=== PATIENT | female | born 1990 | race Caucasian/White ===

== ENCOUNTER 2016-10-28 08:35 | Observation (INO) | payer BC, OTHER ==
[~2016-10-28] VITALS: Ht 170.2 cm; Wt 79.3 kg
[~2016-10-28 08:35] MED LIST: BCPILLS PO
[2016-10-28] MEDS ORDERED: GI COCKTAIL PO STA (09:37)
[2016-10-28] MEDS ORDERED: LIDOCAINE HCL 2% VISC SOLN 20 ML UDC ONE (09:49)
[2016-10-28] MEDS ORDERED: ALUMINUM/MAGNESIUM SUSP 30 ML UDC ONE (09:49)
[2016-10-28 09:59] LABS: BASO % 0.2 %; BASO ABS # 0.01 K/uL (0-0.2); COMPLETE YES; EOS % 0.5 %; HEMATOCRIT 39.6 % (37-47); IG% 0.3 %; LYMPH ABS # 0.99 K/uL (1.2-3.4); MEAN CELL VOLUME 92.1 fL (80-100); MEAN CORPUSCULAR HEMOGLOBIN 32.3 pg (25-34); MEAN CORPUSCULAR HGB CONC 35.1 g/dl (32-36); MEAN PLATELET VOLUME 9.4 fL (7.4-10.4); MONO % 7.7 %; NEUT % 76.3 %; PLATELET COUNT 156 K/uL (130-400); WHITE BLOOD COUNT 6.62 K/uL (4.8-10.8)
[2016-10-28 10:15] LABS: BUN/CREATININE RATIO 11.4 (10-20); CALCIUM 8.6 mg/dl (8.5-10.1); CREATININE 0.84 mg/dl (0.60-1.20); POTASSIUM 4.1 mmol/L (3.5-5.1)
--- NOTE | 2016-10-28 10:18 | DIAGNOSTIC IMAGING REPORT ---
SOFT TISSUE NECK WITHOUT CLINICAL HISTORY: severe left throat pain, prior dye allergy TECHNIQUE: Transaxial acquisition of multi axial reformatted images COMPARISON STUDY: None FINDINGS: Generalized edematous change of the vocal cords evidence for an soft tissues and the left and to a lesser extent right soft tissue neck regions. There is effacement of the left piriform sinus. The epiglottis is unremarkable. There is no significant airway distention. Subglottic region is unremarkable. There is no significant cervical adenopathy. Thyroid is heterogeneous. Major salivary glands are unremarkable. No significant enlargement of the abdomen is present. IMPRESSION: 1. Considerable edematous change of the soft tissues adjacent to the vocal cords and left piriform sinus. 2. This moderately narrows the airway at that site although critical stenosis is not felt to be present. 3. Remainder the study is unremarkable. 4. Reversal of the normal cervical curvature presumably due to muscular spasm and/or patient discomfort. The above report was generated using voice recognition software. It may contain grammatical, syntax or spelling errors. Electronically signed by: Lavelle Mahajan M.D. 10/28/2016 10:17 AM Dictated Date/Time: 10/28/2016 10:12 AM
[2016-10-28] MEDS ORDERED: HYDROmorphone INJ 0.5 MG/0.5 ML SYR IV STA ×3 (10:26→15:42)
[2016-10-28] MEDS ORDERED: DEXAMETHASONE SOD INJ 10 MG/ML VIAL IV ONE (10:30)
[2016-10-28] MEDS ORDERED: LIDOCAINE 4% W/AFRIN NASAL SOLN 4ML EXT STA (10:45)
[2016-10-28] MEDS ORDERED: ONDANSETRON INJ 2 MG/ML 2 ML VIAL IV STA (12:02)
[2016-10-28] MEDS ORDERED: AMPICILLIN/SULBACTAM SOD INJ 3,000 MG in SODIUM CHLORIDE 0.9% 100ML 100 ML IV ONE (14:45)
[2016-10-28 14:53] VITALS: O2SAT 97; Ht 170.2 cm; Wt 79.3 kg
--- NOTE | 2016-10-28 15:59 | EMERGENCY ROOM VISIT NOTE ---
History Report prepared by Cammy: Yasmin Maloney Under the Supervision of: Dr. Brad Khan M.D. First contact with patient: 08:48 Chief Complaint: FOOD BOLUS Stated Complaint: SOMETHING STUCK IN THROAT Nursing Triage Summary: triage note: Pt reports "i feel noodles in my throat, i was eating them on saturday." pt able to tolerate secreations reports throat pain. pt denies any vomitting. pt states "when i talk i can feel it moving." History of Present Illness The patient is a 26 year old female who presents to the Emergency Room with complaints of a food bolus in her throat 2 nights ago. The patient rates her pain at a 10/10 and reports having pain with swallowing. She states that 2 nights ago she ate noodles, and since then, has had throat pain. She has only been able to have soft food and small sips of fluids. The patient also reports having a cough. The patient also states that she is allergic to cats and was around a cat last night. She denies being around anyone sick, including her children. Pt denies LOC, headache, fevers, chills, diaphoresis, visual changes, neck pain, chest pain, breathing difficulties, nausea, vomiting, abdominal pain , back pain, melena, hematochezia, urinary symptoms, numbness, weakness, lymphadenopathy, rash, or other complaints. Source of History: patient Onset: 2 nights ago Position: throat Symptom Intensity: rated at a 10/10 Quality: other (food bolus) Associated Symptoms: + cough, No fevers Review of Systems See HPI for pertinent positives and negatives. A total of ten systems were reviewed and were otherwise negative. Past Medical & Surgical Medical Problems: (1) Clostridium difficile infection (2) Pyelonephritis (3) Tonsillectomy and adenoidectomy (4) UTI (urinary tract infection) Family History FHx: cancer FHx: diabetes FHx: gallbladder disease FHx: heart disease FHx: hypertension FHx: kidney disease/stones FHx: lung disease FHx: seizures Social History Smoking Status: Never Smoker Alcohol Use: none Drug Use: none Marital Status: single Housing Status: lives with family Occupation Status: employed Current/Historical Medications Scheduled Control Pills ( Control Pills), 1 TAB PO DAILY Allergies Coded Allergies: Iodinated Diagnostic Agents (Verified Allergy, Intermediate, THROAT CLOSES , 10/28/16) Acetaminophen (Verified Allergy, Unknown, hives, 10/28/16) pt Hydrocodone (Verified Allergy, Unknown, hives, 10/28/16) pt Iodinated Contrast Media (Verified Allergy, Unknown, ., 10/28/16) Sulfa Drugs (Verified Allergy, Unknown, 10/28/16) Tramadol (Unverified Allergy, Unknown, HIVES, 10/28/16) Physical Exam Vital Signs Date Time Temp Pulse Resp B/P (MAP) Pulse Ox O2 Delivery O2 Flow Rate FiO2 10/28/16 15:37 83 18 118/62 95 Room Air 10/28/16 14:53 97 Room Air 10/28/16 13:22 77 18 119/68 97 Room Air 10/28/16 11:45 83 18 109/67 97 Room Air 10/28/16 09:53 86 18 133/80 98 Room Air 10/28/16 08:47 97 Room Air 10/28/16 08:47 37.2 94 18 116/92 98 Room Air Physical Exam GENERAL: Awake, alert, well-appearing, in no distress HENT: Normocephalic, atraumatic. Mild erythema to the posterior oropharynx. Minimal edema on left tonsillar area. Tender in left anterior neck without signs of swelling. No stridor. EYES: Normal conjunctiva. Sclera non-icteric. NECK: Supple. No nuchal rigidity. FROM. No JVD. RESPIRATORY: Clear to auscultation. CARDIAC: Regular rate, normal rhythm. Extremities warm and well perfused. Pulses equal. ABDOMEN: Soft, non-distended. No tenderness to palpation. No rebound or guarding. No masses. MUSCULOSKELETAL: Chest examination reveals no tenderness. The back is symmetrical on inspection without obvious abnormality. No joint edema. NEURO: Normal sensorium. No sensory or motor deficits noted. SKIN: No rash or jaundice noted. Medical Decision & Procedures ER Provider Diagnostic Interpretation: Radiology results as stated below per my review and radiologist interpretation SOFT TISSUE NECK WITHOUT CLINICAL HISTORY: severe left throat pain, prior dye allergy TECHNIQUE: Transaxial acquisition of multi axial reformatted images COMPARISON STUDY: None FINDINGS: Generalized edematous change of the vocal cords evidence for an soft tissues and the left and to a lesser extent right soft tissue neck regions. There is effacement of the left piriform sinus. The epiglottis is unremarkable. There is no significant airway distention. Subglottic region is unremarkable. There is no significant cervical adenopathy. Thyroid is heterogeneous. Major salivary glands are unremarkable. No significant enlargement of the abdomen is present. IMPRESSION: 1. Considerable edematous change of the soft tissues adjacent to the vocal cords and left piriform sinus. 2. This moderately narrows the airway at that site although critical stenosis is not felt to be present. 3. Remainder the study is unremarkable. 4. Reversal of the normal cervical curvature presumably due to muscular spasm and/or patient discomfort. The above report was generated using voice recognition software. It may contain grammatical, syntax or spelling errors. Electronically signed by: Lavelle Mahajan M.D. 10/28/2016 10:17 AM Dictated Date/Time: 10/28/2016 10:12 AM Laboratory Results 10/28/16 09:45 Red Blood Count 4.30, Mean Corpuscular Volume 92.1, Mean Corpuscular Hemoglobin 32.3, Mean Corpuscular Hemoglobin Concent 35.1, Mean Platelet Volume 9.4, Neutrophils (%) (Auto) 76.3, Lymphocytes (%) (Auto) 15.0, Monocytes (%) (Auto) 7.7, Eosinophils (%) (Auto) 0.5, Basophils (%) (Auto) 0.2, Neutrophils # (Auto) 5.06, Lymphocytes # (Auto) 0.99, Monocytes # (Auto) 0.51, Eosinophils # (Auto) 0.03, Basophils # (Auto) 0.01 10/28/16 09:45 Test 10/28/16 09:45 White Blood Count 6.62 K/uL (4.8-10.8) Red Blood Count 4.30 M/uL (4.2-5.4) Hemoglobin 13.9 g/dL (12.0-16.0) Hematocrit 39.6 % (37-47) Mean Corpuscular Volume 92.1 fL (80-100) Mean Corpuscular Hemoglobin 32.3 pg (25-34) Mean Corpuscular Hemoglobin Concent 35.1 g/dl (32-36) Platelet Count 156 K/uL (130-400) Mean Platelet Volume 9.4 fL (7.4-10.4) Neutrophils (%) (Auto) 76.3 % Lymphocytes (%) (Auto) 15.0 % Monocytes (%) (Auto) 7.7 % Eosinophils (%) (Auto) 0.5 % Basophils (%) (Auto) 0.2 % Neutrophils # (Auto) 5.06 K/uL (1.4-6.5) Lymphocytes # (Auto) 0.99 K/uL (1.2-3.4) Monocytes # (Auto) 0.51 K/uL (0.11-0.59) Eosinophils # (Auto) 0.03 K/uL (0-0.5) Basophils # (Auto) 0.01 K/uL (0-0.2) RDW Standard Deviation 41.6 fL (36.4-46.3) RDW Coefficient of Variation 12.3 % (11.5-14.5) Immature Granulocyte % (Auto) 0.3 % Immature Granulocyte # (Auto) 0.02 K/uL (0.00-0.02) Anion Gap 5.0 mmol/L (3-11) Est Creatinine Clear Calc Drug Dose 107.0 ml/min Estimated GFR () 110.4 Estimated GFR (Non- 95.3 BUN/Creatinine Ratio 11.4 (10-20) Calcium Level 8.6 mg/dl (8.5-10.1) Laboratory results reviewed by me Medications Administered Medications (Trade) Dose Ordered Sig/Radha Route Start Time Stop Time Status Last Admin Dose Admin Al Hydroxide/Mg Hydroxide (Maalox Susp) 30 ml STK-MED ONCE .ROUTE 10/28/16 09:49 10/28/16 09:50 DC 10/28/16 09:51 30 ML Lidocaine HCl (Viscous Lidocaine 2% Soln) 20 ml STK-MED ONCE .ROUTE 10/28/16 09:49 10/28/16 09:50 DC 10/28/16 09:51 20 ML Dexamethasone Sodium Phosphate (Decadron Inj) 10 mg NOW ONCE IV 10/28/16 10:30 10/28/16 10:31 DC 10/28/16 10:39 10 MG Hydromorphone HCl (Dilaudid Inj) 0.5 mg NOW STAT IV 10/28/16 10:26 10/28/16 10:27 DC 10/28/16 10:39 0.5 MG Hydromorphone HCl (Dilaudid Inj) 0.5 mg NOW STAT IV 10/28/16 12:02 10/28/16 12:03 DC 10/28/16 12:28 0.5 MG Ondansetron HCl (Zofran Inj) 4 mg NOW STAT IV 10/28/16 12:02 10/28/16 12:03 DC 10/28/16 12:28 4 MG Ampicillin Sodium/ Sulbactam Sodium 3000 mg/Sodium Chloride 108 ml @ 200 mls/hr ONE ONCE IV 10/28/16 14:45 10/28/16 15:17 DC 10/28/16 14:54 200 MLS/HR Hydromorphone HCl (Dilaudid Inj) 0.5 mg NOW STAT IV 10/28/16 15:42 10/28/16 15:43 DC 10/28/16 15:55 0.5 MG Procedure Nasopharyngoscopy: Risks and benefits were explained with the usual customary discussion. The patient's right naris was anesthetized with topical lidocaine, phenylephrine, peppermint oil. The SPRAYER INSECTICIDE scope was inserted in the standard fashion and the nasopharynx and vallecula were visualized without difficulty. Epiglottis normal. No foreign bodies noted. Mucosa erythematous and swollen over the left vallecula and arytenoids. Vocal cords are visible. No complications. Patient tolerated the procedure well. ED Course 0931: The patient was evaluated in room B10. A complete history and physical exam was performed. 0937: Ordered Gi Cocktail 24 ml PO. 0949: Ordered Lidocaine HCl 20 mg, Maalox Susp 30 ml. 1024: The patient reports feeling better after a GI cocktail, but her pain came back so she is getting Dilaudid. 1026: Ordered Dilaudid Inj 0.5 mg IV. 1030: Ordered Decadron Inj 10 mg IV. 1045: Ordered Lidocaine HCl 4 ml EXT. 1202: Ordered Zofran Inj 4 mg IV, Dilaudid Inj 0.5 mg IV. 1434: Discussed the patient's case with Dr. Wood, and he wants the hospitalist to admit her. 1445: Ordered Ampicillin Sodium / Sulbactam Sodium 3,000 mg/Sodium Chloride. 1454: Consultation made with internal medicine. The patient will be evaluated for further treatment and disposition. 1500: Upon reexamination, the patient was resting. I discussed the test results and treatment plan with her. The patient will be evaluated for further management. Medical Decision Triage Nursing notes reviewed and agree them. The patient's history was concerning for a sore throat. Differential diagnosis: Etiologies such as foreign body, peritonsillar abscess, viral syndrome, retropharyngeal abscess, tonsillitis, mononucleosis, streptococcal pharyngitis, as well as others were entertained. ER treatment provided: GI cocktail On reassessment the patient noted brief relief however stopping pain. Dilaudid x 3 Decadron On reassessment the patient felt better. IV Unasyn Diagnostics interpreted by me: The labs revealed an unremarkable CBC and chemistry panel Imaging studies: CT scan as above The etiology of the patient's swelling is not known at this time. She is not sick difficulty improved with steroids and pain medication. She is still maintaining her airway but this is concerning. Consultation: A consultation was placed with ENT, Dr. Barone.. The case was discussed and diagnostics were reviewed. He reviewed the CT scan. As the patient is still symptomatically after the above treatment he agreed with the IV antibiotics and having the patient admitted to the hospitalist service. He will come to the emergency department to evaluate the patient given the airway swelling. Consultation was made with the [facility] hospitalist service. The patient was evaluated in the emergency department for further management. Medication Reconcilliation Current Medication List: was personally reviewed by me Blood Pressure Screening Patient's blood pressure: Normal blood pressure Consults Time Called: 1400 Consulting Physician: Dr. Wood-ENT Returned Call: 1450 Discussed the patient's case with Dr. Wood, and he wants the hospitalist to admit her. Additional Consults: Time Called: 1430 Consulted Physician: Dr. Pennington - Hospitalist Returned Call: 1610 Additional Comments: This case with Dr. Marti. The patient will be evaluated for further treatment and disposition. Impression Primary Impression: Pharyngitis Additional Impression: airway edema Scribe Attestation The scribe's documentation has been prepared under my direction and personally reviewed by me in its entirety. I confirm that the note above accurately reflects all work, treatment, procedures, and medical decision making performed by me. Departure Information Dispostion Being Evaluated By Hospitalist Referrals No Doctor, Assigned (PCP) Patient Instructions My [facility] Problem Qualifiers
[2016-10-28] MEDS ORDERED: NITROGLYCERIN 0.4 MG SL PER TAB CHARGE SL PRN (16:45)
[2016-10-28] MEDS ORDERED: ACETAMINOPHEN 325 MG TAB PO PRN (16:45)
[2016-10-28] MEDS ORDERED: MAGNESIUM HYDROXIDE SUSP 30 ML UDC PO PRN (16:45)
[2016-10-28] MEDS ORDERED: ONDANSETRON INJ 2 MG/ML 2 ML VIAL IV PRN (16:45)
[2016-10-28] MEDS ORDERED: ALUMINUM/MAGNESIUM/SIMETH (MAALOX MAX) 30 ML UDC PO PRN (16:45)
[2016-10-28 17:56] VITALS: BP 121/80; PULSE 88; TEMP 36.8; O2SAT 96
[2016-10-28] MEDS ORDERED: IV FLUIDS COMPLETED PRN (18:00)
[2016-10-28] MEDS ORDERED: AMPICILLIN/SULBACTAM CONSULT ACTIVE PRN ×2 (18:15)
[2016-10-28] MEDS: D5W AND NSS 1,000 ML IV SCH (18:29)
[2016-10-28] MEDS: DEXAMETHASONE INJ 10 MG in SYRINGE 0 ML IV SCH (18:46)
[2016-10-28 19:23] VITALS: BP 108/56; PULSE 78; TEMP 36.9; O2SAT 97
[2016-10-28 20:00] VITALS: O2SAT 96
--- NOTE | 2016-10-28 20:43 | ENT CONSULTATION ---
DATE OF CONSULTATION: 10/28/2016 REASON FOR CONSULTATION: I have been asked by Dr. Khan to evaluate this patient with left-sided airway swelling. HISTORY OF PRESENT ILLNESS: The patient is a pleasant 26-year-old female who was eating elbow macaroni on Saturday evening and had some trouble with dysphagia at that time where she felt like the food got stuck. She did not have any cough or choke episode. She did not have any vomiting. Her throat did not feel normal, but the symptoms progressed yesterday where she developed increasing left neck and throat pain with increasing difficulty swallowing and some change in her voice. She denies any referred otalgia, shortness of breath, or weight loss. She denies any prior history of swallowing problems. She presented to the Emergency Room this morning at 9:30 and has received 10 mg of Decadron with little to no help in her symptomatology. She has a history of IV CONTRAST DYE ALLERGY and had a CT scan without contrast which reveals to my report, left arytenoid and aryepiglottic fold swelling extending to the left piriform sinus with no foreign body, mass, or lesion seen in the region. The glottic airway is widely patent as is the trachea and subglottic region. There is no associated neck lymphadenopathy on the CT scan. I have been asked to evaluate this patient's airway and have been informed that she is going to be admitted to the hospitalist service with me as a consulting physician. ALLERGIES: VICODIN, IV CONTRAST DYE, TRAMADOL, SULFA DRUGS. CURRENT MEDICATIONS: The patient had 10 mg of Decadron. She has also received Dilaudid, Zofran, Maalox, and a GI cocktail. PAST MEDICAL HISTORY: Uveitis. PAST SURGICAL HISTORY: Status post cholecystectomy. FAMILY HISTORY: Noncontributory. No bleeding disorders or malignant hyperthermia. SOCIAL HISTORY: The patient denies any tobacco or illicit drug use. She drinks alcohol socially. PHYSICAL EXAMINATION: GENERAL: The patient is afebrile. VITAL SIGNS: Stable. She is satting 97% on room air. She has a very mild hoarse voice. HEENT: Bilateral external auditory canals and tympanic membranes are clear. Nasal Septum is midline with no mucosal edema or inferior turbinate hypertrophy. Oral cavity and oropharyngeal examination reveals no mucosal lesions or masses. There is no trismus. NECK: Reveals exquisite tenderness to palpation along the left neck, especially in the level 3 region. There is no associated mass, lymphadenopathy, erythema, or warmth. There is no fluctuance. Her trachea is midline. There is no thyroid nodularity or masses. NEUROLOGIC: The patient is awake and alert and oriented x3. Cranial nerves II-XII are grossly intact. IMAGING DATA: After administration of topical lidocaine and Afrin to the right nasal cavity, flexible laryngoscopy was performed revealing left greater than right arytenoid, postcricoid, and left aryepiglottic fold edema and erythema with no foreign body or mass seen. Her true vocal folds are normal in appearance. There is normal bilateral true vocal fold mobility to midline. There is some edema involving the medial wall of the piriform sinus, but there is no associated mass or pooling of secretions. IMPRESSION AND RECOMMENDATIONS: A 26-year-old female with strange clinical history, but with some mildly significant supraglottic airway erythema and edema. Suspect that the food bolus on Saturday led to some kind of mucosal irritation from food being stuck there and has now progressed. I agree with admitting to the hospitalist service and placing her on IV antibiotics and steroids. I would recommend Unasyn 3 grams IV q. 6 hours and Decadron 10 mg IV q. 8 hours until her symptoms improved. I will see her tomorrow morning to check on her progress. She has no prior history of dysphagia. Other considerations would be to place her on a proton pump inhibitor therapy and H2 blockers in case this is at all related to acid reflux. If you have any questions regarding this consultation, please do not hesitate to contact me.
[2016-10-28] MEDS: AMPICILLIN/SULBACTAM SOD INJ 3,000 MG in SODIUM CHLORIDE 0.9% 100ML 100 ML IV SCH (20:49)
[2016-10-28 21:17] VITALS: BP 116/73; PULSE 88; TEMP 37; O2SAT 96
[2016-10-28] MEDS: RANITIDINE IV 50 MG in DEXTROSE 5% 100ML 100 ML IV SCH (21:36)
[2016-10-28] MEDS: HYDROmorphone INJ 0.5 MG/0.5 ML SYR IV PRN (21:36)
[2016-10-29] VITALS (11 sets, daily range): BP systolic 106–120; BP diastolic 63–71; PULSE 62–97; TEMP 36.7–37; O2SAT 82–98
[2016-10-29] MEDS: D5W AND NSS 1,000 ML IV SCH ×2 (00:58→12:15)
[2016-10-29] MEDS: AMPICILLIN/SULBACTAM SOD INJ 3,000 MG in SODIUM CHLORIDE 0.9% 100ML 100 ML IV SCH ×4 (01:40→20:31)
[2016-10-29] MEDS: DEXAMETHASONE INJ 10 MG in SYRINGE 0 ML IV SCH ×3 (01:40→16:16)
[2016-10-29] MEDS: HYDROmorphone INJ 0.5 MG/0.5 ML SYR IV PRN ×4 (05:33→21:39)
[2016-10-29 05:52] LABS: COMPLETE YES; HEMATOCRIT 39.2 % (37-47); IG% 0.2 %; LYMPH % 10.6 %; LYMPH ABS # 0.53 K/uL (1.2-3.4); MEAN CELL VOLUME 91.4 fL (80-100); MEAN CORPUSCULAR HEMOGLOBIN 32.2 pg (25-34); MEAN CORPUSCULAR HGB CONC 35.2 g/dl (32-36); MEAN PLATELET VOLUME 9.8 fL (7.4-10.4); MONO % 2.2 %; PLATELET COUNT 166 K/uL (130-400); RED BLOOD COUNT 4.29 M/uL (4.2-5.4); WHITE BLOOD COUNT 5.02 K/uL (4.8-10.8)
--- NOTE | 2016-10-29 05:57 | ENT PROGRESS NOTE ---
DATE: 10/29/2016 SUBJECTIVE: The patient was seen this morning in her medical ICU room. She was asleep without any snoring, stertor, or stridor. Upon awakening, I asked her if she was feeling any better and she reports feeling "20%" better. She was kept n.p.o. by the hospitalist. She states she feels like she can eat and would like to eat. The patient seems to have a more normal voice today. 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 She does appear mildly uncomfortable. Throughout her hospital course so far, she has been afebrile and her vital signs are stable. IMPRESSION AND RECOMMENDATIONS: A 26-year-old female with strange airway swelling after eating elbow macaroni on Saturday evening. She is improving on IV antibiotics and steroids, albeit slowly. I do not believe that she needs to be kept n.p.o. and she should be started on a soft mechanical diet. If she does not continue to improve, then perhaps a swallow study or a gastrointestinal consult is warranted to ensure that there are no other problems with her esophagus. If you have any questions regarding this progress note, please do not hesitate to contact me. I will continue to follow along with this patient.
[2016-10-29 06:27] LABS: BUN/CREATININE RATIO 11.3 (10-20); CALCIUM 8.4 mg/dl (8.5-10.1); CREATININE 0.69 mg/dl (0.60-1.20); MAGNESIUM 2.1 mg/dl (1.8-2.4)
[2016-10-29] MEDS: RANITIDINE IV 50 MG in DEXTROSE 5% 100ML 100 ML IV SCH ×2 (08:06→20:31)
--- NOTE | 2016-10-29 10:12 | HISTORY & PHYSICAL EXAMINATION ---
DATE OF ADMISSION: 10/28/2016 CHIEF COMPLAINT: Stuck in the throat. HISTORY OF PRESENT ILLNESS: This 26-year-old female with past medical history significant for inflammatory arthritis, but no longer on any medications, who presents with feeling of stuck in throat since last Saturday evening after she had noodles. Since then she is feeling some fullness in the throat and some stucking feeling which got progressively worse. Yesterday, she having pain with swallowing . She called her family doctor and was told if it does not get better, go to the ER on Saturday, but today it got worse and she also felt somewhat mildly short of breath, so she came to the ER. In the ER, her hemodynamics are stable. She is saturating fine on the room air and a soft tissue CAT scan in the ER showed significant edematous changes of soft tissue adjacent to the vocal cords and left piriform sinus and the ER physician also did an nasopharyngoscopy and there were no foreign bodies noted.ENT also examined her and saw that there was a significant edema and inflammation and erythematous changes and advised for Decadron and antibiotics. Currently, the patient is feeling better, but still has some pain while swallowing. Resting comfortably. Denies any chest pain, no shortness of breath, no cough, no fever, no chills, no headache, no blurred vision, no nausea, no vomiting, no abdominal pain. Normal bowel and bladder movements. No blood in the stools or during micturition, no swelling, no rash. Otherwise until this happened, she was in good health. ALLERGIES: TO ACETAMINOPHEN, HYDROCODONE, IV CONTRAST, SULFA DRUGS, TRAMADOL. PAST MEDICAL HISTORY: As mentioned above. PAST SURGICAL HISTORY: She has had cholecystectomy and appendectomy. MEDICATIONS: control pills. FAMILY HISTORY: The patient is not aware of any medical conditions. SOCIAL HISTORY: Quit smoking about 5 years ago. Prior to that smoked about 3 packs a day for a few years. Denies any alcohol use. Denies any drug use. REVIEW OF SYSTEMS: As per HPI. Rest of the review of symptoms negative. PHYSICAL EXAMINATION: GENERAL: The patient is alert and oriented, not in distress. VITAL SIGNS: Temperature 37.2, pulse 83, respiratory rate 18, blood pressure 118/62, oxygen 95% on room air. HEENT: No pallor, no icterus. Pupils equal, round, and reactive to light. NECK: No JVD. No neck masses, somewhat tender to palpation on the front of the neck. CARDIOVASCULAR: S1, S2 heard, regular rate and rhythm. No murmur, no gallop. RESPIRATORY: Clear to auscultation bilaterally. No wheezing, no crackles. ABDOMEN: Soft. Bowel sounds present, nontender. No distention. NEUROLOGIC: Cranial nerves II-XII are grossly intact. Nonfocal. EXTREMITIES: No edema, no erythema. LABORATORY DATA: Sodium 142, potassium 4.1, chloride 108, bicarbonate 29, BUN 10, creatinine 0.8, serum glucose 189. WBC 6.6, hemoglobin 13.9, hematocrit 39.6, platelets 156. IMAGING DATA: Soft tissue CT scan of the neck, significant edematous changes of the soft tissue adjacent to the vocal cords and left piriform sinus. This moderately narrows the airway at that site, although critical stenosis not felt to be present. The remainder of the study is unremarkable. Reverse of the normal cervical curvature presumably due to muscular spasm and patient discomfort. ASSESSMENT AND PLAN: This is a 26-year-old female who presents with stuck in throat feeling and a CAT scan showing significant edematous changes of the soft tissues adjacent to vocal cords and left piriform sinus, evaluated by ENT. ENT thinks may be she might have had food stuck there and got inflamed, probably mild infection. We will treat her with IV Decadron 10 mg t.i.d., and IV Unasyn, IV Zantac. Monitor on tele floor, n.p.o. for now and we will place her on IV fluids. 2. History of rheumatoid arthritis, not on any medications currently. 3.Deep vein thrombosis prophylaxis scds for now. DISPOSITION: Observation on tele floor. Expect to discharge home and follow with her family doctor. Level 1 full code. MTDD
--- NOTE | 2016-10-29 11:49 | Gastrointestinal Consultation ---
Gastrointestinal Consultation Date of Consultation: Oct 29, 2016 Attending Physician: Candelario Consulting Physician: Carl Reason for Consultation: esophageal edema History of Present Illness Patient is a 26 year old female with history of inflammatory arthritis who presented to the ED for evaluatuon of painful swallowing and difficutly breathin g. Pt was seen and evaluated, chart reviewed. Pt tells me she was in her typical state of health without any GI complaints up until Saturday afternoon. She ate some cooked noodles and immediately felt and heard a pop and has had throat pain since. She tells me Saturday night, she was having a sore throat and painful swallowing, but Saturday symptoms were worse. Notes that she had difficulty swallowing her saliva at this pain because it hurts so bad to do so. She was able to have some liquids and small bites, but this was also very hard to swallow. She was seen by ENT yesterday, who had visualized airway edema , without any evidence of food bolus and was started on IV steroids. This AM she tells me she had some scrambled eggs and liquids for breakfast, which she was able to swallow, but it was painful. She has not had a BM since Saturday. Is on narcotics while admitted for pain. No history of prior EGD No history of steroid use prior to admission No NSAIDs history No ETOH No recent ABX CT neck 10/28/16: Considerable edematous change of the soft tissues adjacent to the vocal cords and left piriform sinus. This moderately narrows the airway at that site although critical stenosis is not felt to be present. Remainder the study is unremarkable. Past Medical/Surgical History Medical Problems: (1) Pharyngitis Status: Acute Past Medical History: inflammatory arthritis Past Surgical History: appendectomy, cholecystectomy Family History FHx: cancer FHx: diabetes FHx: gallbladder disease FHx: heart disease FHx: hypertension FHx: kidney disease/stones FHx: lung disease FHx: seizures Social History Smoking Status: Never Smoker Alcohol Use: none Drug Use: none Marital Status: single Housing Status: lives with family Occupation Status: employed Allergies Coded Allergies: Iodinated Diagnostic Agents (Verified Allergy, Intermediate, THROAT CLOSES , 10/28/16) Acetaminophen (Verified Allergy, Unknown, hives, 10/28/16) pt Hydrocodone (Verified Allergy, Unknown, hives, 10/28/16) pt Iodinated Contrast Media (Verified Allergy, Unknown, ., 10/28/16) Sulfa Drugs (Verified Allergy, Unknown, 10/28/16) Tramadol (Unverified Allergy, Unknown, HIVES, 10/28/16) Current Medications Home Meds and Scripts Medications Dose Route/Sig Max Daily Dose Days Date Category Control Pills (Miscellaneous) Tab 1 Tab PO DAILY 07/16/14 Reported Review of Systems Constitutional: No fever, No chills Respiratory: No cough, No shortness of breath Cardiac: No chest pain, No edema Abdomen: + constipation, + dysphagia, + odynophagia, No pain, No nausea, No vomiting, No diarrhea Physical Exam Date Time Temp Pulse Resp B/P (MAP) Pulse Ox O2 Delivery O2 Flow Rate FiO2 10/29/16 08:00 Room Air 10/29/16 07:32 37.0 80 20 109/70 (83) 98 Room Air 10/29/16 04:01 36.9 83 16 118/69 (85) 98 Room Air 10/29/16 00:17 36.7 79 16 110/65 (80) 97 10/29/16 00:01 97 Room Air 10/28/16 21:17 37.0 88 18 116/73 (87) 96 Room Air 10/28/16 20:00 96 Room Air 10/28/16 19:23 36.9 78 18 108/56 (73) 97 Room Air 10/28/16 17:56 36.8 88 20 121/80 (94) 96 Room Air 10/28/16 17:46 84 16 110/69 97 10/28/16 17:29 84 16 110/69 97 Room Air 10/28/16 15:37 83 18 118/62 95 Room Air 10/28/16 14:53 97 Room Air 10/28/16 13:22 77 18 119/68 97 Room Air 10/28/16 11:45 83 18 109/67 97 Room Air General Appearance: no apparent distress Eyes: PERRL ENT: hearing grossly normal, pharynx normal, + pertinent finding (report of tenderness w/ palpation of neck) Neck: supple Respiratory/Chest: lungs clear, normal breath sounds, no respiratory distress, no accessory muscle use Cardiovascular: regular rate, rhythm Abdomen: normal bowel sounds, non tender, soft Neurologic/Psych: alert, normal mood/affect, oriented x 3 Skin: normal color, no jaundice, warm/dry, no rash Laboratory Results Last 24 Hours Test 10/29/16 05:26 White Blood Count 5.02 K/uL Red Blood Count 4.29 M/uL Hemoglobin 13.8 g/dL Hematocrit 39.2 % Mean Corpuscular Volume 91.4 fL Mean Corpuscular Hemoglobin 32.2 pg Mean Corpuscular Hemoglobin Concent 35.2 g/dl Platelet Count 166 K/uL Mean Platelet Volume 9.8 fL Neutrophils (%) (Auto) 87.0 % Lymphocytes (%) (Auto) 10.6 % Monocytes (%) (Auto) 2.2 % Eosinophils (%) (Auto) 0.0 % Basophils (%) (Auto) 0.0 % Neutrophils # (Auto) 4.37 K/uL Lymphocytes # (Auto) 0.53 K/uL Monocytes # (Auto) 0.11 K/uL Eosinophils # (Auto) 0.00 K/uL Basophils # (Auto) 0.00 K/uL RDW Standard Deviation 40.4 fL RDW Coefficient of Variation 12.1 % Immature Granulocyte % (Auto) 0.2 % Immature Granulocyte # (Auto) 0.01 K/uL Sodium Level 139 mmol/L Potassium Level 4.0 mmol/L Chloride Level 106 mmol/L Carbon Dioxide Level 27 mmol/L Anion Gap 6.0 mmol/L Blood Urea Nitrogen 8 mg/dl Creatinine 0.69 mg/dl Est Creatinine Clear Calc Drug Dose 130.3 ml/min Estimated GFR () 138.3 Estimated GFR (Non- 119.3 BUN/Creatinine Ratio 11.3 Random Glucose 175 mg/dl Calcium Level 8.4 mg/dl Magnesium Level 2.1 mg/dl Impression Patient is a 26 year old female with history of inflammatory arthritis not on any medications who presents with odynophagia and dysphagia following dinner on Saturday even, symptoms have progressively worsened which prompted ED evaluation. CT with considerable edematous change of the soft tissues adjacent to the vocal cords and left piriform sinus moderately narrowing the airway at that site although critical stenosis. Visualization by ENT with vocal cord edema without any evidence of food bolus. On exam, pt is tolerating her secretions and had soft diet for breakfast. There is a lunch tray at her bedside. Plan - EGD 10/30/[address] Henry - Continue Pepcid IV - Continue ABX - Clear liquid diet today - NPO after midnight - Continue steroids per ENT - Avoid NSAIDs - MOM or miralax PRN constipation - Further recommendations pending results of EGD I saw and evaluated the patient. We are consult at for evaluation of a sore throat and a question of intermittent dysphagia over the last 72 hours. The patient reports having sudden onset of symptoms macaroni on Saturday evening. Prior to the day mentation she denied having difficulty swallowing pain with swallowing or heartburn symptoms. Physical examination No obvious distress, no abdominal tenderness Impression: Patient with cervical discomfort unclear etiology. We are happy to perform an upper endoscopy to evaluate for evidence of esophageal ulcer. Recommendations Full liquid diet today Upper endoscopy pending on Saturday Please call with questions or concerns
[2016-10-29] MEDS ORDERED: COUGH DROP (SUGAR FREE) LOZ 24 LOZ/1 BOX ONE (16:28)
[2016-10-29] MEDS ORDERED: NURSING VERBAL MED ORDER ONE (16:45)
[2016-10-29] MEDS ORDERED: COUGH DROP (SUGAR FREE) LOZ 24 LOZ/1 BOX PO PRN (17:00)
--- NOTE | 2016-10-29 17:49 | Progress Note ---
Internal Med Progress Note Date of Service: Oct 29, 2016. Provider Documentation: SUBJECTIVE: patient still having painful swallowing and stuck in throat feeling afebrile no sob no chest pain no nausea hemodynamics stable OBJECTIVE: Vital Signs-as noted below Exam: General-alert and oriented. Not in distress ENT-normal hearing Neck-no neck masses Lungs-cta b/l no wheezing no crackles Heart-s1 and s2 heard regular rhythm, no murmurs Abdomen-soft bowel sounds present non tender no distension Extremities no edema present no erythema Neuro-alert and oriented moves extremities Lab data as noted below. ASSESSMENT & PLAN: This is a 26-year-old female who presents with stuck in throat feeling and a CAT scan showing significant edematous changes of the soft tissues adjacent to vocal cords and left piriform sinus, evaluated by ENT. on iv decadron, iv Unasyn and fluids Not much improvement ENT following GI consulted asnd plan for egd in am. 2. History of rheumatoid arthritis, not on any medications currently. 3.Deep vein thrombosis prophylaxis scds for now. DISPOSITION: Observation on tele floor. Expect to discharge home and follow with her family doctor. Level 1 full code. Vital Signs: Date Time Temp Pulse Resp B/P (MAP) Pulse Ox O2 Delivery O2 Flow Rate FiO2 10/29/16 14:46 36.9 62 20 107/68 (81) 98 Room Air 10/29/16 12:00 36.8 76 18 110/71 (84) 96 Room Air 10/29/16 11:48 36.8 86 18 110/71 (84) 82 Room Air 10/29/16 11:01 37.0 76 20 106/68 (81) 97 Room Air 10/29/16 08:00 Room Air 10/29/16 07:32 37.0 80 20 109/70 (83) 98 Room Air 10/29/16 04:01 36.9 83 16 118/69 (85) 98 Room Air 10/29/16 00:17 36.7 79 16 110/65 (80) 97 10/29/16 00:01 97 Room Air 10/28/16 21:17 37.0 88 18 116/73 (87) 96 Room Air 10/28/16 20:00 96 Room Air 10/28/16 19:23 36.9 78 18 108/56 (73) 97 Room Air 10/28/16 17:56 36.8 88 20 121/80 (94) 96 Room Air Lab Results: Results Past 24 Hours Test 10/29/16 05:26 Range/Units White Blood Count 5.02 4.8-10.8 K/uL Red Blood Count 4.29 4.2-5.4 M/uL Hemoglobin 13.8 12.0-16.0 g/dL Hematocrit 39.2 37-47 % Mean Corpuscular Volume 91.4 80-100 fL Mean Corpuscular Hemoglobin 32.2 25-34 pg Mean Corpuscular Hemoglobin Concent 35.2 32-36 g/dl Platelet Count 166 130-400 K/uL Mean Platelet Volume 9.8 7.4-10.4 fL Neutrophils (%) (Auto) 87.0 % Lymphocytes (%) (Auto) 10.6 % Monocytes (%) (Auto) 2.2 % Eosinophils (%) (Auto) 0.0 % Basophils (%) (Auto) 0.0 % Neutrophils # (Auto) 4.37 1.4-6.5 K/uL Lymphocytes # (Auto) 0.53 1.2-3.4 K/uL Monocytes # (Auto) 0.11 0.11-0.59 K/uL Eosinophils # (Auto) 0.00 0-0.5 K/uL Basophils # (Auto) 0.00 0-0.2 K/uL RDW Standard Deviation 40.4 36.4-46.3 fL RDW Coefficient of Variation 12.1 11.5-14.5 % Immature Granulocyte % (Auto) 0.2 % Immature Granulocyte # (Auto) 0.01 0.00-0.02 K/uL Sodium Level 139 136-145 mmol/L Potassium Level 4.0 3.5-5.1 mmol/L Chloride Level 106 98-107 mmol/L Carbon Dioxide Level 27 21-32 mmol/L Anion Gap 6.0 3-11 mmol/L Blood Urea Nitrogen 8 7-18 mg/dl Creatinine 0.69 0.60-1.20 mg/dl Est Creatinine Clear Calc Drug Dose 130.3 ml/min Estimated GFR () 138.3 Estimated GFR (Non- 119.3 BUN/Creatinine Ratio 11.3 10-20 Random Glucose 175 70-99 mg/dl Calcium Level 8.4 8.5-10.1 mg/dl Magnesium Level 2.1 1.8-2.4 mg/dl
[2016-10-29] MEDS: DEXAMETHASONE INJ 6 MG in SYRINGE 0 ML IV SCH (22:54)
[2016-10-30] VITALS (8 sets, daily range): BP systolic 106–115; BP diastolic 55–80; PULSE 53–82; TEMP 36.8–37.1; O2SAT 96–97
[2016-10-30] MEDS: D5W AND NSS 1,000 ML IV SCH ×2 (00:58→13:49)
[2016-10-30] MEDS: AMPICILLIN/SULBACTAM SOD INJ 3,000 MG in SODIUM CHLORIDE 0.9% 100ML 100 ML IV SCH ×4 (02:21→21:11)
[2016-10-30] MEDS: DEXAMETHASONE INJ 6 MG in SYRINGE 0 ML IV SCH ×3 (06:22→21:49)
--- NOTE | 2016-10-30 06:39 | ENT PROGRESS NOTE ---
DATE: 10/30/2016 SUBJECTIVE: The patient was seen in her medical ICU room. Initially, she was sleeping, and during sleep, there was no snoring, stertor or stridor. Upon awakening, the patient reports that she is not feeling any better and continues to have problems with left-sided sore throat and odynophagia. She denies any shortness of breath. She does state that her voice waxes and wanes and she was able to tolerate some Jell-O and broth yesterday. She was seen by gastroenterology and is scheduled for an EGD sometime today. She feels as if the steroids are starting to wear off, that she will have increased symptomatology. VITAL SIGNS: The patient is afebrile and her vital signs are stable. She is satting 95-98% on room air. PHYSICAL EXAMINATION: The patient has a fairly normal voice. She continues to have tenderness to palpation along her left neck in the level 3 region, although this is not as tender as previously. There is no associated lymphadenopathy or neck mass. There is no overlying erythema, warmth or fluctuance. IMPRESSION AND RECOMMENDATIONS: A 26-year-old female with strange symptoms of left-sided sore throat and left greater than right arytenoid and postcricoid edema with involvement of the aryepiglottic fold after eating elbow macaroni on Saturday evening. I agree with EGD for evaluation of the esophagus and stomach. Depending on the results of the EGD, continue to advance diet as tolerated. I will plan on performing repeat flexible laryngoscopy sometime in the future, whether that be as an inpatient or outpatient depends on her clinical response to treatment. I will continue to follow along. If you have any questions regarding this patient's care, please do not hesitate to contact me.
[2016-10-30 06:43] LABS: COMPLETE YES; HEMATOCRIT 37.8 % (37-47); IG% 0.2 %; LYMPH % 7.8 %; LYMPH ABS # 0.65 K/uL (1.2-3.4); MEAN CELL VOLUME 93.6 fL (80-100); MEAN CORPUSCULAR HEMOGLOBIN 31.9 pg (25-34); MEAN CORPUSCULAR HGB CONC 34.1 g/dl (32-36); MEAN PLATELET VOLUME 9.9 fL (7.4-10.4); MONO % 3.1 %; NEUT % 88.9 %; PLATELET COUNT 170 K/uL (130-400); RED BLOOD COUNT 4.04 M/uL (4.2-5.4); WHITE BLOOD COUNT 8.35 K/uL (4.8-10.8)
[2016-10-30 07:12] LABS: CALCIUM 8.6 mg/dl (8.5-10.1); CREATININE 0.76 mg/dl (0.60-1.20); MAGNESIUM 2.1 mg/dl (1.8-2.4); POTASSIUM 3.9 mmol/L (3.5-5.1)
[2016-10-30] MEDS: HYDROmorphone INJ 0.5 MG/0.5 ML SYR IV PRN ×3 (08:09→20:03)
[2016-10-30] MEDS: RANITIDINE IV 50 MG in DEXTROSE 5% 100ML 100 ML IV SCH ×2 (08:09→20:03)
--- NOTE | 2016-10-30 10:32 | Progress Note ---
Internal Med Progress Note Date of Service: Oct 30, 2016. Provider Documentation: SUBJECTIVE: pain in the throat not getting better had pain ful swallowing of jellies says now pain is shooting up into her left ear afebrile no sob no chest pain OBJECTIVE: Vital Signs-as noted below Exam: General-alert and oriented. Not in distress ENT-normal hearing Neck-no neck masses Lungs-cta b/l no wheezing no crackles Heart-s1 and s2 heard regular rhythm, no murmurs Abdomen-soft bowel sounds present non tender no distension Extremities no edema present no erythema Neuro-alert and oriented moves extremities Lab data as noted below. ASSESSMENT & PLAN: This is a 26-year-old female who presents with stuck in throat feeling and a CAT scan showing significant edematous changes of the soft tissues adjacent to vocal cords and left piriform sinus, evaluated by ENT. on iv decadron, iv Unasyn and fluids Not much improvement ENT following GI consulted and plan for egd today- will f/u results ENT planning for flexible laryngoscope again will monitor 2. History of rheumatoid arthritis, not on any medications currently. 3.Deep vein thrombosis prophylaxis scds for now. DISPOSITION: Observation on tele floor. Expect to discharge home and follow with her family doctor. Level 1 full code. Vital Signs: Date Time Temp Pulse Resp B/P (MAP) Pulse Ox O2 Delivery O2 Flow Rate FiO2 10/30/16 09:11 Room Air 10/30/16 08:00 Room Air 10/30/16 07:32 37.0 67 12 113/74 (87) 97 Room Air 10/30/16 07:17 36.9 73 20 112/71 (85) 97 Room Air 10/30/16 06:44 36.8 82 18 115/66 96 Room Air 10/30/16 03:50 36.8 82 18 115/66 (82) 96 Room Air 10/30/16 00:01 Room Air 10/29/16 22:55 37.0 69 18 112/65 (81) 95 Room Air 10/29/16 19:50 37.0 97 18 120/63 (82) 97 Room Air 10/29/16 16:00 Room Air 10/29/16 16:00 36.9 74 20 112/68 (83) 98 Room Air 10/29/16 14:46 36.9 62 20 107/68 (81) 98 Room Air 10/29/16 12:00 36.8 76 18 110/71 (84) 96 Room Air 10/29/16 11:48 36.8 86 18 110/71 (84) 82 Room Air 10/29/16 11:01 37.0 76 20 106/68 (81) 97 Room Air Lab Results: Results Past 24 Hours Test 10/30/16 00:02 10/30/16 05:38 10/30/16 06:10 Range/Units Bedside Glucose 175 155 70-90 mg/dl White Blood Count 8.35 4.8-10.8 K/uL Red Blood Count 4.04 4.2-5.4 M/uL Hemoglobin 12.9 12.0-16.0 g/dL Hematocrit 37.8 37-47 % Mean Corpuscular Volume 93.6 80-100 fL Mean Corpuscular Hemoglobin 31.9 25-34 pg Mean Corpuscular Hemoglobin Concent 34.1 32-36 g/dl Platelet Count 170 130-400 K/uL Mean Platelet Volume 9.9 7.4-10.4 fL Neutrophils (%) (Auto) 88.9 % Lymphocytes (%) (Auto) 7.8 % Monocytes (%) (Auto) 3.1 % Eosinophils (%) (Auto) 0.0 % Basophils (%) (Auto) 0.0 % Neutrophils # (Auto) 7.42 1.4-6.5 K/uL Lymphocytes # (Auto) 0.65 1.2-3.4 K/uL Monocytes # (Auto) 0.26 0.11-0.59 K/uL Eosinophils # (Auto) 0.00 0-0.5 K/uL Basophils # (Auto) 0.00 0-0.2 K/uL RDW Standard Deviation 41.4 36.4-46.3 fL RDW Coefficient of Variation 12.2 11.5-14.5 % Immature Granulocyte % (Auto) 0.2 % Immature Granulocyte # (Auto) 0.02 0.00-0.02 K/uL Sodium Level 142 136-145 mmol/L Potassium Level 3.9 3.5-5.1 mmol/L Chloride Level 109 98-107 mmol/L Carbon Dioxide Level 27 21-32 mmol/L Anion Gap 6.0 3-11 mmol/L Blood Urea Nitrogen 10 7-18 mg/dl Creatinine 0.76 0.60-1.20 mg/dl Est Creatinine Clear Calc Drug Dose 120.0 ml/min Estimated GFR () 124.6 Estimated GFR (Non- 107.5 BUN/Creatinine Ratio 13.0 10-20 Random Glucose 146 70-99 mg/dl Calcium Level 8.6 8.5-10.1 mg/dl Magnesium Level 2.1 1.8-2.4 mg/dl
--- NOTE | 2016-10-30 11:42 | Endo History and Physical ---
History & Physical Date of Service: Oct 30, 2016. Chief Complaint: Neck and throat discomfort Referring Physician: History of Present Illness Patient evaluated for neck and throat discomfort. Recent nasopharyngoscopy with vocal cord edema. Upper endoscopy requested by ENT and internal medicine service to evaluate for evidence of an esophageal process. She denies having dysphagia today. Past Surgical History Hx Cardiac Surgery: No Hx Abdominal Surgery: Yes (APPENDECTOMY, GALLBLADDER) Hx Post-Op Nausea and Vomiting: No Hx Cancer Surgery: No Hx Thoracic Surgery: No Hx Orthopedic: No Hx Urinary Tract Surgery: No Social History Smoking Status: Never Smoker Hx Substance Use: No Hx Alcohol Use: No Allergies Coded Allergies: Iodinated Diagnostic Agents (Verified Allergy, Intermediate, THROAT CLOSES , 10/28/16) Hydrocodone (Verified Allergy, Unknown, hives, 10/28/16) pt Iodinated Contrast Media (Verified Allergy, Unknown, ., 10/28/16) Sulfa Drugs (Verified Allergy, Unknown, 10/28/16) Tramadol (Unverified Allergy, Unknown, HIVES, 10/28/16) Current Medications Reported Home Medications Medications Dose Route/Sig Max Daily Dose Days Date Category Control Pills (Miscellaneous) Tab 1 Tab PO DAILY 07/16/14 Reported Vital Signs Weight (Kilograms): 78.500 Height (Feet): 5 Height (Inches): 7.00 Date Time Temp Pulse Resp B/P (MAP) Pulse Ox O2 Delivery O2 Flow Rate FiO2 10/30/16 10:57 36.9 71 20 107/74 (85) 96 Room Air 10/30/16 09:11 Room Air 10/30/16 08:00 Room Air 10/30/16 07:32 37.0 67 12 113/74 (87) 97 Room Air 10/30/16 07:17 36.9 73 20 112/71 (85) 97 Room Air 10/30/16 06:44 36.8 82 18 115/66 96 Room Air 10/30/16 03:50 36.8 82 18 115/66 (82) 96 Room Air 10/30/16 00:01 Room Air 10/29/16 22:55 37.0 69 18 112/65 (81) 95 Room Air 10/29/16 19:50 37.0 97 18 120/63 (82) 97 Room Air 10/29/16 16:00 Room Air 10/29/16 16:00 36.9 74 20 112/68 (83) 98 Room Air 10/29/16 14:46 36.9 62 20 107/68 (81) 98 Room Air 10/29/16 12:00 36.8 76 18 110/71 (84) 96 Room Air 10/29/16 11:48 36.8 86 18 110/71 (84) 82 Room Air Physical Exam General Appearance: + mild distress Respiratory/Chest: Auscultation: breath sounds normal Abdomen: Inspection & Palpation: soft Assessment and Plan EGD for evaluation of neck and throat discomfort. We've discussed the risks and benefits to include bleeding, infection, perforation and need for follow-up studies.
[2016-10-30] MEDS ORDERED: MIDAZOLAM HCL 1 MG/ML 2ML VIAL ONE (12:08)
[2016-10-30] MEDS ORDERED: LIDOCAINE HCL 2% 2 ML VIAL (20MG/ML) ONE (12:16)
[2016-10-30] MEDS ORDERED: PROPOFOL IV EMULSION 10 MG/ML 20 ML VIAL IV ONE (12:16)
--- NOTE | 2016-10-30 12:40 | Progress Note ---
Progress Note Date of Service Oct 30, 2016. Progress Note The patient underwent upper endoscopy this afternoon. Findings Normal esophagus Normal stomach Normal appearing duodenum Impression: No evidence of GI pathology to explain the patient's throat and left -sided neck discomfort Recommendations Advance diet as tolerated Follow-up with ear nose and throat and internal medicine for further guidance.
--- NOTE | 2016-10-30 12:40 | GI REPORT ---
Procedure Date: 10/30/2016 12:05 PM Procedure: Upper GI endoscopy Indications: Sore throat Medicines: Monitored Anesthesia Care Complications: No immediate complications. Estimated blood loss: Minimal. Estimated Blood Loss: Estimated blood loss was minimal. Procedure: Pre-Anesthesia Assessment: - Prior to the procedure, a History and Physical was performed, and patient medications, allergies and sensitivities were reviewed. The patient's tolerance of previous anesthesia was reviewed. - The risks and benefits of the procedure and the sedation options and risks were discussed with the patient. All questions were answered and informed consent was obtained. - Patient identification and proposed procedure were verified prior to the procedure by the physician, the nurse and the gastroenterology manager. The procedure was verified in the procedure room. - Pre-procedure physical examination revealed no contraindications to sedation. - ASA Grade Assessment: III - A patient with severe systemic disease. - After reviewing the risks and benefits, the patient was deemed in satisfactory condition to undergo the procedure. - The anesthesia plan was to use monitored anesthesia care (MAC). - Immediately prior to administration of medications, the patient was re-assessed for adequacy to receive sedatives. - The heart rate, respiratory rate, oxygen saturations, blood pressure, adequacy of pulmonary ventilation, and response to care were monitored throughout the procedure. - The physical status of the patient was re-assessed after the procedure. After obtaining informed consent, the endoscope was passed under direct vision. Throughout the procedure, the patient's blood pressure, pulse, and oxygen saturations were monitored continuously. The Scope was introduced through the mouth, and advanced to the third part of duodenum. The upper GI endoscopy was accomplished without difficulty. The patient tolerated the procedure well. Findings: The examined esophagus was normal. The Z-line was regular and was found 38 cm from the incisors. The entire examined stomach was normal. The examined duodenum was normal. Impression: - Normal esophagus. - Z-line regular, 38 cm from the incisors. - Normal stomach. - Normal examined duodenum. - No specimens collected. Recommendation: - [facility] patient to [facility] care. - Advance diet as tolerated. - No evidence of esophageal pathology to explain her present symtoms. Kalee Henry D.O. Kalee Henry, DO 10/30/2016 12:39:31 PM This report has been signed electronically. Note Initiated On: 10/30/2016 12:05 PM I attest to the content of the Intraoperative Record and orders documented therein, exceptions below
--- NOTE | 2016-10-30 14:22 | Anesthesiology Progress Note ---
Anesthesia Post Op Note Date & Time Oct 30, 2016 at 14:22 Vital Signs Pain Intensity: 10.0 Vital Signs Past 12 Hours Date Time Temp Pulse Resp B/P (MAP) Pulse Ox O2 Delivery O2 Flow Rate FiO2 10/30/16 13:04 54 20 123/76 (92) 98 Room Air 10/30/16 12:49 55 20 118/77 (91) 98 Room Air 10/30/16 12:34 56 20 117/76 (90) 99 Room Air 10/30/16 11:39 36.9 72 20 120/83 (95) 99 Room Air 10/30/16 10:57 36.9 71 20 107/74 (85) 96 Room Air 10/30/16 09:11 Room Air 10/30/16 08:00 Room Air 10/30/16 07:32 37.0 67 12 113/74 (87) 97 Room Air 10/30/16 07:17 36.9 73 20 112/71 (85) 97 Room Air 10/30/16 06:44 36.8 82 18 115/66 96 Room Air 10/30/16 03:50 36.8 82 18 115/66 (82) 96 Room Air Notes Mental Status: alert / awake / arousable, participated in evaluation Pt Amnestic to Procedure: Yes Nausea / Vomiting: adequately controlled Pain: adequately controlled Airway Patency, RR, SpO2: stable & adequate BP & HR: stable & adequate Hydration State: stable & adequate Anesthetic Complications: no major complications apparent
[2016-10-31] MEDS: AMPICILLIN/SULBACTAM SOD INJ 3,000 MG in SODIUM CHLORIDE 0.9% 100ML 100 ML IV SCH ×2 (02:16→07:44)
[2016-10-31] MEDS: D5W AND NSS 1,000 ML IV SCH (02:16)
[2016-10-31] MEDS: HYDROmorphone INJ 0.5 MG/0.5 ML SYR IV PRN ×2 (03:17→07:43)
[2016-10-31 03:50] VITALS: BP 120/72; PULSE 53; TEMP 36.9; O2SAT 95
[2016-10-31] MEDS: DEXAMETHASONE INJ 6 MG in SYRINGE 0 ML IV SCH (05:53)
[2016-10-31 06:17] LABS: COMPLETE YES; HEMATOCRIT 37.6 % (37-47); IG% 0.2 %; LYMPH % 10.7 %; LYMPH ABS # 0.62 K/uL (1.2-3.4); MEAN CELL VOLUME 93.8 fL (80-100); MEAN CORPUSCULAR HEMOGLOBIN 31.7 pg (25-34); MEAN CORPUSCULAR HGB CONC 33.8 g/dl (32-36); MONO % 5.3 %; NEUT % 83.8 %; PLATELET COUNT 185 K/uL (130-400); RED BLOOD COUNT 4.01 M/uL (4.2-5.4); WHITE BLOOD COUNT 5.81 K/uL (4.8-10.8)
[2016-10-31 06:58] LABS: BUN/CREATININE RATIO 15.5 (10-20); CALCIUM 7.8 mg/dl (8.5-10.1); CREATININE 0.73 mg/dl (0.60-1.20); MAGNESIUM 2.4 mg/dl (1.8-2.4); POTASSIUM 4.1 mmol/L (3.5-5.1)
[2016-10-31 07:17] VITALS: BP 122/75; PULSE 52; TEMP 37; O2SAT 96
--- NOTE | 2016-10-31 07:41 | ENT PROGRESS NOTE ---
DATE: 10/31/2016 SUBJECTIVE: The patient is improving. She states that she is "70%" improved overall compared to when she came to the Emergency Room on 10/28/2016. She had an EGD yesterday which is unremarkable. It was noted by the tool and die designer that she could have her diet advanced as tolerated but there is only a clear liquid diet ordered. She feels like as if she can swallow solid food. She is afebrile and vital signs are stable. She is satting 95% on room air. She continues to have some mild odynophagia and dysphagia with some mild left neck pain. Her voice has improved. She does want to go home. PHYSICAL EXAMINATION: The patient has a normal voice. There is less tenderness to palpation of the left neck. There is no overlying warmth, erythema, or fluctuance. After administration of topical lidocaine and Afrin to the right nasal cavity, flexible laryngoscopy was performed which revealed complete resolution of the edema of her left arytenoid and aryepiglottic fold. There are no mucosal lesions or masses. There is no foreign body seen within the hypopharynx, larynx, or piriform sinuses. There is no pooling of secretions within the piriform sinuses. IMPRESSION AND RECOMMENDATIONS: 26-year-old female who has been in the hospital now for almost 4 days with strange left-sided hypopharyngeal swelling which has now resolved with the implementation of IV antibiotics and IV steroids. I believe that she can go home and I would recommend a regimen of liquid Augmentin at a dose of 875 mg twice daily for 2 weeks and liquid steroids of Orapred 15 mg per 5 mL with 10 mL p.o. b.i.d. for 5 days followed by 5 mL p.o. b.i.d. for 2 days, followed by 5 mL daily for 2 days. I would also recommend a 2-week followup with me, but she is to call sooner if she has any worsening symptomatology. I will sign off on this consultation, but if you needs any further assistance, please do not hesitate to contact me.
[2016-10-31] MEDS: RANITIDINE IV 50 MG in DEXTROSE 5% 100ML 100 ML IV SCH (09:12)
[2016-10-31] MEDS ORDERED: AGMUDL4005 PO (09:19)
[2016-10-31] MEDS ORDERED: LCTX PO (09:19)
[2016-10-31] MEDS ORDERED: PRLUDL5 PO (09:19)
--- NOTE | 2016-10-31 09:22 | Discharge Instructions ---
Discharge Instructions Date of Service Oct 31, 2016. Admission Reason for Admission: Vocal Cord Edema Discharge Discharge Diagnosis / Problem: edema of her left arytenoid and aryepiglottic, ODONOPHAGIA Discharge Goals Goal(s): Decrease discomfort, Improve function Activity Recommendations Activity Limitations: resume your previous activity . Instructions / Follow-Up Instructions / Follow-Up FOLLOWUP WITH FAMILY DOCTOR IN ONE WEEK FOLLOWUP WITH ENT DR.Michael Wood IN 2 WEEKS. EARLIER IF SYMPTOMS RECURS. ( [address] [facility], [address], [place] [address] ) Current Hospital Diet Patient's current hospital diet: Regular Diet Discharge Diet Recommended Diet: Regular Diet Pending Studies Studies pending at discharge: no Medical Emergencies . Who to Call and When: Medical Emergencies: If at any time you feel your situation is an emergency, please call 911 immediately. . Non-Emergent Contact Non-Emergency issues call your: Primary Care Provider . . "Provider Documentation" section prepared by Silver Palomino. . VTE Core Measure Inpt VTE Proph given/why not?: SCD's
[2016-10-31 09:23] VITALS: BP 122/75; PULSE 52; TEMP 37; O2SAT 96
[2016-10-31] MEDS ORDERED: OXYC10SO PO (09:24)
--- NOTE | 2016-10-31 20:02 | Progress Note ---
Internal Med Progress Note Date of Service: Oct 31, 2016. Provider Documentation: SUBJECTIVE: pain in the throat improved sp laryngoscopy today and edema resolved tolerated regular diet afebrile ok for discharge OBJECTIVE: Vital Signs-as noted below Exam: General-alert and oriented. Not in distress ENT-normal hearing Neck-no neck masses Lungs-cta b/l no wheezing no crackles Heart-s1 and s2 heard regular rhythm, no murmurs Abdomen-soft bowel sounds present non tender no distension Extremities no edema present no erythema Neuro-alert and oriented moves extremities Lab data as noted below. ASSESSMENT & PLAN: This is a 26-year-old female who presents with stuck in throat feeling and a CAT scan showing significant edematous changes of the soft tissues adjacent to vocal cords and left piriform sinus, evaluated by ENT. on iv decadron, iv Unasyn and fluids Not much improvement ENT following GI consulted as/p egd which was unremarkable s/p repeat laryngoscope today and was unremarkable patient tolerated regular diet d/melly on Augmentin suspension and orapred f/u with pcp and ENT. 2. History of rheumatoid arthritis, not on any medications currently. Discharged home Vital Signs: Date Time Temp Pulse Resp B/P (MAP) Pulse Ox O2 Delivery O2 Flow Rate FiO2 10/31/16 09:23 37.0 52 20 96 Room Air 10/31/16 08:00 Room Air 10/31/16 07:17 37.0 52 20 122/75 (91) 96 Room Air 10/31/16 04:00 Room Air 10/31/16 03:50 36.9 53 16 120/72 (88) 95 Room Air 10/30/16 23:59 Room Air 10/30/16 22:55 37.0 54 16 106/55 (72) 97 Room Air Lab Results: Results Past 24 Hours Test 10/31/16 03:09 10/31/16 05:14 Range/Units Bedside Urine Test NEG NEG White Blood Count 5.81 4.8-10.8 K/uL Red Blood Count 4.01 4.2-5.4 M/uL Hemoglobin 12.7 12.0-16.0 g/dL Hematocrit 37.6 37-47 % Mean Corpuscular Volume 93.8 80-100 fL Mean Corpuscular Hemoglobin 31.7 25-34 pg Mean Corpuscular Hemoglobin Concent 33.8 32-36 g/dl Platelet Count 185 130-400 K/uL Mean Platelet Volume 10.0 7.4-10.4 fL Neutrophils (%) (Auto) 83.8 % Lymphocytes (%) (Auto) 10.7 % Monocytes (%) (Auto) 5.3 % Eosinophils (%) (Auto) 0.0 % Basophils (%) (Auto) 0.0 % Neutrophils # (Auto) 4.87 1.4-6.5 K/uL Lymphocytes # (Auto) 0.62 1.2-3.4 K/uL Monocytes # (Auto) 0.31 0.11-0.59 K/uL Eosinophils # (Auto) 0.00 0-0.5 K/uL Basophils # (Auto) 0.00 0-0.2 K/uL RDW Standard Deviation 40.7 36.4-46.3 fL RDW Coefficient of Variation 12.1 11.5-14.5 % Immature Granulocyte % (Auto) 0.2 % Immature Granulocyte # (Auto) 0.01 0.00-0.02 K/uL Sodium Level 141 136-145 mmol/L Potassium Level 4.1 3.5-5.1 mmol/L Chloride Level 108 98-107 mmol/L Carbon Dioxide Level 28 21-32 mmol/L Anion Gap 5.0 3-11 mmol/L Blood Urea Nitrogen 11 7-18 mg/dl Creatinine 0.73 0.60-1.20 mg/dl Est Creatinine Clear Calc Drug Dose 125.5 ml/min Estimated GFR () 130.8 Estimated GFR (Non- 112.9 BUN/Creatinine Ratio 15.5 10-20 Random Glucose 137 70-99 mg/dl Calcium Level 7.8 8.5-10.1 mg/dl Magnesium Level 2.4 1.8-2.4 mg/dl
--- NOTE | 2016-10-31 20:07 | Discharge Summary ---
Discharge Summary Date of Service Oct 31, 2016. Discharge Summary Admission Date: Oct 28, 2016 at 16:52 Discharge Date: Oct 31, 2016 Discharge Disposition: Home Principal Diagnosis: edema of her left arytenoid and aryepiglottic, ODONOPHAGIA Secondary Diagnoses/Problems: inflammatory arthritis Procedures: soft tissue ct neck: 1. Considerable edematous change of the soft tissues adjacent to the vocal cords and left piriform sinus. 2. This moderately narrows the airway at that site although critical stenosis is not felt to be present. 3. Remainder the study is unremarkable. 4. Reversal of the normal cervical curvature presumably due to muscular spasm and/or patient discomfort. s/p egd s/p laryngoscope Consultations: ENT GI Medication Reconciliation New Medications: Amoxicillin/Clavulanate Potas (Augmentin 400MG/5ML) 400 Mg/5 Ml Susp 10 ML PO BID for 14 Days, #280 ML Lactobacillus Acidophilus (Lactinex) Tab 2 TAB PO BID for 15 Days, TAB Oxycodone Hcl (Roxycodone Oral Soln) 5 Mg/5 Ml Lorna 5 ML PO Q6 PRN for Pain for 3 Days Prednisolone (Prelone 15MG/5ML) 15 Mg/5 Ml Syrp 10 ML PO UD for 9 Days, ML ORAPRED 15MG/5ML 10ML PO TWICE DAILY X 5 DAYS THEN ORAPRED 15MG/5ML 5ML PO TWICE DAILY X 2 DAYS THEN ORAPRED 15MG/5ML 5ML PO ONCE DAILY X 2 DAYS THEN STOP. Continued Medications: Control Pills ( Control Pills) Tab 1 TAB PO DAILY, TAB Admission Information HPI (per Admitting provider): : This 26-year-old female with past medical history significant for inflammatory arthritis, but no longer on any medications, who presents with feeling of stuck in throat since last Saturday evening after she had noodles. Since then she is feeling some fullness in the throat and some stucking feeling which got progressively worse. Yesterday, she having pain with swallowing . She called her family doctor and was told if it does not get better, go to the ER on Saturday, but today it got worse and she also felt somewhat mildly short of breath, so she came to the ER. In the ER, her hemodynamics are stable. She is saturating fine on the room air and a soft tissue CAT scan in the ER showed significant edematous changes of soft tissue adjacent to the vocal cords and left piriform sinus and the ER physician also did an nasopharyngoscopy and there were no foreign bodies noted.ENT also examined her and saw that there was a significant edema and inflammation and erythematous changes and advised for Decadron and antibiotics. Currently, the patient is feeling better, but still has some pain while swallowing. Resting comfortably. Denies any chest pain, no shortness of breath, no cough, no fever, no chills, no headache, no blurred vision, no nausea, no vomiting, no abdominal pain. Normal bowel and bladder movements. No blood in the stools or during micturition, no swelling, no rash. Otherwise until this happened, she was in good health. Physical Exam (per Admitting): GENERAL: The patient is alert and oriented, not in distress. VITAL SIGNS: Temperature 37.2, pulse 83, respiratory rate 18, blood pressure 118/62, oxygen 95% on room air. HEENT: No pallor, no icterus. Pupils equal, round, and reactive to light. NECK: No JVD. No neck masses, somewhat tender to palpation on the front of the neck. CARDIOVASCULAR: S1, S2 heard, regular rate and rhythm. No murmur, no gallop. RESPIRATORY: Clear to auscultation bilaterally. No wheezing, no crackles. ABDOMEN: Soft. Bowel sounds present, nontender. No distention. NEUROLOGIC: Cranial nerves II-XII are grossly intact. Nonfocal. EXTREMITIES: No edema, no erythema. Hospital Course This is a 26-year-old female who presents with stuck in throat feeling and a CAT scan showing significant edematous changes of the soft tissues adjacent to vocal cords and left piriform sinus, evaluated by ENT. on iv decadron, iv Unasyn and fluids Not much improvement ENT following GI consulted as/p egd which was unremarkable s/p repeat laryngoscope today and was unremarkable patient tolerated regular diet d/melly on Augmentin suspension and orapred f/u with pcp and ENT. 2. History of rheumatoid arthritis, not on any medications currently. Discharged home Total time spent on discharge = 35MINUTES This includes examination of the patient, discharge planning, medication reconciliation, and communication with other providers. Discharge Instructions Discharge Instructions Date of Service Oct 31, 2016. Admission Reason for Admission: Vocal Cord Edema Discharge Discharge Diagnosis / Problem: edema of her left arytenoid and aryepiglottic, ODONOPHAGIA Discharge Goals Goal(s): Decrease discomfort, Improve function Activity Recommendations Activity Limitations: resume your previous activity . Instructions / Follow-Up Instructions / Follow-Up FOLLOWUP WITH FAMILY DOCTOR IN ONE WEEK FOLLOWUP WITH ENT DR.Michael Wood IN 2 WEEKS. EARLIER IF SYMPTOMS RECURS. ( [address] [facility], [address], [place] [address] ) Current Hospital Diet Patient's current hospital diet: Regular Diet Discharge Diet Recommended Diet: Regular Diet Pending Studies Studies pending at discharge: no Medical Emergencies . Who to Call and When: Medical Emergencies: If at any time you feel your situation is an emergency, please call 911 immediately. . Non-Emergent Contact Non-Emergency issues call your: Primary Care Provider . . "Provider Documentation" section prepared by Silver Palomino. . VTE Core Measure Inpt VTE Proph given/why not?: SCD's Additional Copies To Telma Otto PA-C
== END 2016-10-31 10:55 | disposition home or self-care (01) ==
LOC: C.EDB 08:36 → C.2E 16:52 → ENRESERV 17:05 → EDBEDREQ 17:12
PROVIDERS: ADMIT Internal Medicine; ATTEND Internal Medicine
DX: J38.3 Other diseases of vocal cords (principal); Z87.891 Personal history of nicotine dependence; Z87.440 Personal history of urinary (tract) infections; Z79.3 Long term (current) use of hormonal contraceptives; Z90.49 Acquired absence of other specified parts of digestive tract; Z83.3 Family history of diabetes mellitus; Z84.1 Family history of disorders of kidney and ureter; Z83.6 Family history of other diseases of the respiratory system

== ENCOUNTER 2017-01-05 19:44 | Emergency (ER) | payer BC ==
[~2017-01-05] VITALS: Ht 170.2 cm; Wt 79.0 kg
[~2017-01-05 19:44] MED LIST changes: +OXYC10SO PO
[2017-01-05 19:47] VITALS: TEMP 36.9; Ht 170.2 cm; Wt 79.0 kg
[2017-01-05] MEDS ORDERED: PROPARACAINE HCL 0.5% OP SOLN 15 ML BTL OP STA (20:09)
[2017-01-05] MEDS ORDERED: MELO7.5T5 PO (20:17)
[2017-01-05] MEDS ORDERED: IBUPROFEN 600 MG TAB PO STA (20:21)
[2017-01-05] MEDS ORDERED: OXYCODONE HCL IR 5 MG TAB (IMMEDIATE RELEASE) PO STA (20:21)
[2017-01-05] MEDS ORDERED: PrednisoLONE ACET 1% OP SUSP 5 ML BTL OP ONE (20:45)
[2017-01-05] MEDS ORDERED: CYCLOPENTOLATE HCL 1% OP SOLN 2 ML BTL OP ONE (21:00)
--- NOTE | 2017-01-05 21:32 | EMERGENCY ROOM VISIT NOTE ---
History First contact with patient: 19:53 Chief Complaint: EYE PAIN Stated Complaint: L EYE REDNESS, SWOLLEN, PAIN History of Present Illness The patient is a 26 year old female who presents to the Emergency Room with complaints of severe left eye pain that she noticed when she woke up this morning. The patient also notes some blurry vision in the lateral half of that eye. There has been slight clear drainage. She is extremely sensitive to light. The patient does not wear contact lenses. She has had this pain in the past. The patient has a history of rheumatoid arthritis. She was transferred to [facility] in 2010 and diagnosed with uveitis of the left eye. This required steroid treatment. The patient denies any purulent drainage from the eye. She says this pain feels the same as it did in 2010. She has not had a flare since. The patient has been put on methotrexate for her rheumatoid arthritis. She has been continuing to take this as prescribed. She denies any fever or chills. Review of Systems 6 system review negative. Please see pertinent positives in the history of present illness section. Past Medical/Surgical History Medical Problems: (1) Clostridium difficile infection (2) Pyelonephritis (3) Tonsillectomy and adenoidectomy (4) UTI (urinary tract infection) (5) Vocal cord edema Family History FHx: cancer FHx: diabetes FHx: gallbladder disease FHx: heart disease FHx: hypertension FHx: kidney disease/stones FHx: lung disease FHx: seizures Social History Smoking Status: Never Smoker Alcohol Use: none Drug Use: none Marital Status: single Housing Status: lives with family Occupation Status: employed Current/Historical Medications Scheduled PRN Meloxicam (Mobic), 7.5 MG PO DAILY PRN for Pain Oxycodone Ir (Roxicodone Ir), 1-2 TAB PO Q4H PRN for Pain Physical Exam Vital Signs Date Time Temp Pulse Resp B/P (MAP) Pulse Ox O2 Delivery O2 Flow Rate FiO2 01/05/17 21:58 78 119/69 97 01/05/17 19:47 36.9 84 18 127/83 99 Room Air Physical Exam VITALS: Vitals are noted on the nurse's note and reviewed by myself. Vital signs stable. GENERAL: 26-year-old female, in intense discomfort,, SKIN: The skin was without rashes, erythema, edema, or bruising. HEAD: Normocephalic atraumatic. EYES: Pupils equal round and reactive to light and accommodation. Conjunctiva of the left eyes somewhat injected. Extraocular muscles are intact. She does have discomfort with extraocular movement. Insert Slit Lamp Exam Slit Lamp Examination was performed of the left eye(s). Alcaine drops were applied to the affected eye(s) for proper anesthetization. The affected eye(s) were stained with Fluorescein stain to precipitate adequate visualization of any conjunctival/scleral excoriations or ulcers. The patients face was comfortably rested on the chin guard of the slit lamp apparatus. The lights were dimmed and the affected eye(s) were thoroughly examined under microscopy using the blue light. No uptake was present On the cornea. , the eye(s) were examined under microscopy using the regular light. Close examination revealed slight cloudiness of the anterior chamber. She does also appear to have approximately 2-3 dark spots in the anterior chamber. She is extremely sensitive to light; therefore, the exam is somewhat limited.. MUSCULOSKELETAL:. Strength 5/5 throughout. NEURO: Patient was alert and oriented to person place and time. Normal sensation to touch. No focal neurological deficits. Medical Decision & Procedures Medications Administered Medications (Trade) Dose Ordered Sig/Radha Route Start Time Stop Time Status Last Admin Dose Admin Proparacaine HCl (Alcaine 0.5% Oph Soln) 2 drops ONE STAT OP 01/05/17 20:09 01/05/17 20:10 DC 01/05/17 20:35 2 DROPS Oxycodone HCl (Roxicodone Immediate Rel Tab) 5 mg NOW STAT PO 01/05/17 20:21 01/05/17 20:22 DC 01/05/17 20:34 5 MG Ibuprofen (Motrin Tab) 600 mg ONE STAT PO 01/05/17 20:21 01/05/17 20:22 DC 01/05/17 20:34 600 MG Prednisolone Acetate (Pred Forte 1% Oph Susp) 2 drops NOW ONCE OP 01/05/17 20:45 01/05/17 20:46 DC 01/05/17 21:42 2 DROPS Cyclopentolate HCl (Cyclogyl 1% Oph Soln) 1 drops ONE ONCE OP 01/05/17 21:00 01/05/17 21:01 DC 01/05/17 21:43 1 DROPS ED Course The patient was seen and examined alcaine drops were applied. She was also given 1 oxycodone and Motrin 600 mg by mouth. A slit-lamp exam was performed. Please see my physical exam. I discussed the case with my supervising physician Ophthalmology was paged. Dr. Zepeda probably returned my phone call. We discussed the case. One drop of prednisolone ophthalmic solution was applied to the left eye in addition to one drop of Cyclogyl She was provided discharge instructions. She voiced understanding, and was discharged in good condition Medical Decision Differential diagnosis: Infectious versus inflammatory uveitis, corneal abrasion , ulceration, corneal foreign body, scleritis, conjunctivitis This patient is a 26-year-old female that presented to the emergency department with severe pain in the left eye upon awakening this morning. She also has extreme light sensitivity. On exam, her extraocular muscles are intact. Light sensitivity is noted. Her conjunctiva is mildly injected. Slit-lamp exam revealed a few spots in the anterior chamber. The cornea was intact. She has a history of uveitis. Her history and physical is consistent with this presentation. The case was discussed with ophthalmology who is in agreement. She will be treated with a steroid drop in addition to Cyclogyl. She was encouraged to call immediately Saturday morning for a follow-up appointment with either Dr. William or Dr. Zepeda. She was also provided a short course of narcotics for pain. She is happy with this plan of care. She agrees to return the emergency department with any worsening symptoms. This chart was completed in part utilizing [employer] Speech Voice Recognition software. Attempts were made to minimize the grammatical errors, random word insertions, pronoun errors and incomplete sentences. Any formal questions or concerns about the content, text or information contained within the body of this dictation should be directly addressed to the provider for clarification. Impression Primary Impression: Uveitis Departure Information Dispostion Home / Self-Care Prescriptions Oxycodone Ir (Roxicodone Ir) 5 Mg Tab 1-2 TAB PO Q4H Y for Pain, #15 TAB For Initial Treatment Prov: Vianney Ames PA-C 01/05/17 Referrals No Doctor, Assigned (PCP) Willie William D.O. Katelyn, Aravind Jones MD Forms WORK / SCHOOL INSTRUCTIONS, HOME CARE DOCUMENTATION FORM, IMPORTANT VISIT INFORMATION Patient Instructions My [facility] Additional Instructions You were evaluated in the emergency department with severe left thigh pain. This is likely your uveitis returning. Please apply prednisone drops 1 drop to the left eye every hour for 24 hours. If you get up in the middle of the night, please apply 1 drop then also. It is not necessary for you to wake herself up or setting alarm. After 24 hours, please apply 1 drop to the left eye every 2 hours Please apply Cyclogyl 1 drop to the left eye every 6-8 hours as needed for pain Ibuprofen 600 mg every 8 hours as needed for discomfort Oxycodone Immediate Release (OxyIR) 5mg: Take 1-2 pills every four hours for pain. Avoid alcohol, operating machinery or dangerous equipment, working on ladders or roofs, DRIVING, or situations where being under the influence may be dangerous. It is recommended to use an [id number] stool softener such as Colace, 100mg twice daily while taking this medication to avoid constipation. Please call either Dr. William or Dr. Zepeda for follow-up early Saturday morning. It is very important to see them early next week. Please return to the emergency department immediately for any new or concerning symptoms such as increased changes in vision, pain, fever or swelling of the eye
[2017-01-05] MEDS ORDERED: OXYC1TAB3 PO ×2 (21:50→22:00)
[2017-01-05 21:58] VITALS: BP 119/69; PULSE 78; O2SAT 97
== END 2017-01-05 21:59 | disposition home or self-care (01) ==
LOC: C.EDB 19:45 → C.EDD 21:59
DX: H20.9 Unspecified iridocyclitis (principal); M06.9 Rheumatoid arthritis, unspecified; Z86.19 Personal history of other infectious and parasitic diseases; Z87.440 Personal history of urinary (tract) infections; Z82.0 Family history of epilepsy and other diseases of the nervous system; Z82.49 Family history of ischemic heart disease and other diseases of the circulatory system; Z83.3 Family history of diabetes mellitus; Z83.6 Family history of other diseases of the respiratory system; Z83.79 Family history of other diseases of the digestive system; Z84.1 Family history of disorders of kidney and ureter

== ENCOUNTER 2017-09-30 09:39 | Emergency (ER) | payer BC, OTHER ==
[~2017-09-30] VITALS: Ht 170.2 cm; Wt 70.5 kg
[~2017-09-30 09:39] MED LIST changes: -BCPILLS PO; +MELO7.5T5 PO; -OXYC10SO PO
[2017-09-30 09:42] VITALS: TEMP 36.7; Ht 170.2 cm; Wt 70.5 kg
[2017-09-30] MEDS ORDERED: KETOROLAC TROMETHAMINE 30 MG/ML VIAL IV STA (10:12)
[2017-09-30] MEDS ORDERED: ONDANSETRON INJ 2 MG/ML 2 ML VIAL IV STA ×2 (10:12→13:52)
[2017-09-30] MEDS ORDERED: SODIUM CHLORIDE 0.9% 1000ML 2,000 ML IV STA ×2 (10:12→12:04)
[2017-09-30 10:32] LABS: BASO % 0.2 %; BASO ABS # 0.01 K/uL (0-0.2); EOS % 0.2 %; EOS ABS # 0.01 K/uL (0-0.5); HEMATOCRIT 42.6 % (37-47); HEMOGLOBIN 14.7 g/dL (12.0-16.0); IG# 0.01 K/uL (0.00-0.02); LYMPH % 20.1 %; LYMPH ABS # 0.97 K/uL (1.2-3.4); MEAN CORPUSCULAR HEMOGLOBIN 31.7 pg (25-34); MEAN CORPUSCULAR HGB CONC 34.5 g/dl (32-36); MEAN PLATELET VOLUME 10.1 fL (7.4-10.4); MONO % 9.5 %; MONO ABS # 0.46 K/uL (0.11-0.59); NEUT % 69.8 %; NEUT ABS # 3.37 K/uL (1.4-6.5); PLATELET COUNT 146 K/uL (130-400); RED CELL DISTRIBUTION WIDTH CV 12.3 % (11.5-14.5); RED CELL DISTRIBUTION WIDTH SD 41.5 fL (36.4-46.3); WHITE BLOOD COUNT 4.83 K/uL (4.8-10.8)
[2017-09-30 10:53] LABS: CALCIUM 8.7 mg/dl (8.5-10.1); CREATININE 0.88 mg/dl (0.60-1.20); POTASSIUM 3.5 mmol/L (3.5-5.1); TOTAL PROTEIN 7.5 gm/dl (6.4-8.2)
--- NOTE | 2017-09-30 11:08 | DIAGNOSTIC IMAGING REPORT ---
ABD/PELVIS WITHOUT FOR STONE CT DOSE: 488.89 mGy.cm HISTORY: Flank pain severe l flank pain w/ UTI TECHNIQUE: Multiaxial CT images of the abdomen and pelvis were performed without the use of intravenous and oral contrast according to the standard department stone protocol. A dose lowering technique was utilized adhering to the principles of ALARA. COMPARISON STUDY: 04/07/2013 FINDINGS: Lung bases are clear. Mild stable hepatosplenomegaly. Prior cholecystectomy. Kidneys negative for hydronephrosis or calcification. Nonobstructive bowel pattern. Prior appendectomy. 2.2 cm right ovarian cyst. Uterus is anteflexed and slightly bulky appearance. IMPRESSION: 1. No evidence for an obstructing urinary tract calculus. 2. Nonobstructive bowel pattern. 3. 2.2 cm right ovarian cyst. 4. Prior cholecystectomy. The above report was generated using voice recognition software. It may contain grammatical, syntax or spelling errors. Electronically signed by: Lavelle Mahajan M.D. 09/30/2017 11:07 AM Dictated Date/Time: 09/30/2017 11:03 AM
[2017-09-30] MEDS ORDERED: SODIUM CHLORIDE 0.9% 1000ML 1,000 ML IV STA (13:30)
[2017-09-30] MEDS ORDERED: CEPH500C2 PO (14:53)
[2017-09-30] MEDS ORDERED: ONDA4TAB46 PO (14:54)
[2017-09-30 15:13] VITALS: BP 115/80; PULSE 65; O2SAT 100
--- NOTE | 2017-09-30 16:05 | EMERGENCY ROOM VISIT NOTE ---
History Report prepared by Cammy: Carlos Flores Under the Supervision of: Nona RivasO. First contact with patient: 09:54 Chief Complaint: GI ASSESSMENT Stated Complaint: FEVER,CHILLS,VOMITING,KIDNEY PAIN Nursing Triage Summary: Pt. arrives with c/o of vomitting and abdominal pain. Pt. also states he has had right sided face and neck swelling. Pt. states she has shapr pain across the left lower back and states it increases when she urinates. History of Present Illness The patient is a 27 year old female who presents to the Emergency Room with complaints of vomiting, diarrhea, left flank pain, fever, and chills beginning yesterday. She states that her highest fever has been 103, and reports a fever of 102.8 this morning. She states that she has been taking ibuprofen. The patient denies a cough or runny nose. The patient reports that she also has pain with urination and urinary urgency. She states that her urine has a foul odor to it. She reports a history of UTIs and states that her current symptoms feel very similar. She also reports a history of kidney stones, but notes that her current symptoms do not feel similar. The patient denies vaginal bleeding or discharge. She states that she vomited all day yesterday every hour, and improved to only twice this morning. She states that her diarrhea has been persistent yesterday and today. She reports that there is no one sick at work. Source of History: patient Onset: yesterday Position: back (left flank), other (global) Symptom Intensity: 103 highest recorded fever Timing: intermittent (vomiting and diarrhea) Modifying Factors (Worsening): urination Associated Symptoms: + urinary symptoms (urgency, urine with foul odor, pain with urination) Review of Systems See HPI for pertinent positives & negatives. A total of 10 systems reviewed and were otherwise negative. Past Medical & Surgical Medical Problems: (1) Clostridium difficile infection (2) Pyelonephritis (3) Tonsillectomy and adenoidectomy (4) UTI (urinary tract infection) (5) Vocal cord edema Family History FHx: cancer FHx: diabetes FHx: gallbladder disease FHx: heart disease FHx: hypertension FHx: kidney disease/stones FHx: lung disease FHx: seizures Social History Smoking Status: Never Smoker Alcohol Use: none Drug Use: none Marital Status: single Housing Status: lives with family Occupation Status: employed Current/Historical Medications Scheduled Cephalexin Monohydrate (Keflex), 500 MG PO TID Scheduled PRN Ondansetron Hcl (Zofran), 4 MG PO TID PRN for Nausea Allergies Coded Allergies: Iodinated Diagnostic Agents (Verified Allergy, Intermediate, THROAT CLOSES , 09/30/17) Hydrocodone (Verified Allergy, Unknown, hives, 09/30/17) pt Iodinated Contrast Media (Verified Allergy, Unknown, ., 09/30/17) Sulfa Drugs (Verified Allergy, Unknown, 09/30/17) Tramadol (Unverified Allergy, Unknown, HIVES, 09/30/17) Physical Exam Vital Signs Date Time Temp Pulse Resp B/P (MAP) Pulse Ox O2 Delivery O2 Flow Rate FiO2 09/30/17 15:13 65 18 115/80 100 09/30/17 13:55 68 20 95/63 98 Room Air 09/30/17 11:35 59 18 112/68 99 Room Air 09/30/17 09:42 36.7 91 16 109/75 98 Room Air Physical Exam GENERAL: Sitting up in bed, no acute distress, non-toxic EYE EXAM: normal conjunctiva. OROPHARYNX: no exudate, no erythema, lips, buccal mucosa, and tongue normal and mucous membranes are moist NECK: supple, no nuchal rigidity, no adenopathy, non-tender LUNGS: Clear to auscultation. Normal chest wall mechanics HEART: no murmurs, S1 normal and S2 normal ABDOMEN: abdomen soft, tender to palpation of left flank, normo-active bowel sounds, no masses, no rebound or guarding. BACK: Back is symmetrical on inspection and there is no deformity, no midline tenderness, no CVA tenderness. SKIN: no rashes and no bruising UPPER EXTREMITIES: upper extremities are grossly normal. LOWER EXTREMITIES: No pitting edema. NEURO EXAM: Normal sensorium, cranial nerves II-XII grossly intact, normal speech, no gross weakness of arms, no gross weakness of legs. Medical Decision & Procedures ER Provider Diagnostic Interpretation: Radiology results as stated below per my review and the radiologist's interpretation: ABD/PELVIS WITHOUT FOR STONE CT DOSE: 488.89 mGy.cm HISTORY: Flank pain severe l flank pain w/ UTI TECHNIQUE: Multiaxial CT images of the abdomen and pelvis were performed without the use of intravenous and oral contrast according to the standard department stone protocol. A dose lowering technique was utilized adhering to the principles of ALARA. COMPARISON STUDY: 04/07/2013 FINDINGS: Lung bases are clear. Mild stable hepatosplenomegaly. Prior cholecystectomy. Kidneys negative for hydronephrosis or calcification. Nonobstructive bowel pattern. Prior appendectomy. 2.2 cm right ovarian cyst. Uterus is anteflexed and slightly bulky appearance. IMPRESSION: 1. No evidence for an obstructing urinary tract calculus. 2. Nonobstructive bowel pattern. 3. 2.2 cm right ovarian cyst. 4. Prior cholecystectomy. The above report was generated using voice recognition software. It may contain grammatical, syntax or spelling errors. Electronically signed by: Lavelle Mahajan M.D. 09/30/2017 11:07 AM Dictated Date/Time: 09/30/2017 11:03 AM Laboratory Results 09/30/17 10:20 Red Blood Count 4.63, Mean Corpuscular Volume 92.0, Mean Corpuscular Hemoglobin 31.7, Mean Corpuscular Hemoglobin Concent 34.5, Mean Platelet Volume 10.1, Neutrophils (%) (Auto) 69.8, Lymphocytes (%) (Auto) 20.1, Monocytes (%) (Auto) 9.5, Eosinophils (%) (Auto) 0.2, Basophils (%) (Auto) 0.2, Neutrophils # (Auto) 3.37, Lymphocytes # (Auto) 0.97, Monocytes # (Auto) 0.46, Eosinophils # (Auto) 0.01, Basophils # (Auto) 0.01 09/30/17 10:20 Test 09/30/17 10:20 09/30/17 13:40 White Blood Count 4.83 K/uL (4.8-10.8) Red Blood Count 4.63 M/uL (4.2-5.4) Hemoglobin 14.7 g/dL (12.0-16.0) Hematocrit 42.6 % (37-47) Mean Corpuscular Volume 92.0 fL (80-100) Mean Corpuscular Hemoglobin 31.7 pg (25-34) Mean Corpuscular Hemoglobin Concent 34.5 g/dl (32-36) Platelet Count 146 K/uL (130-400) Mean Platelet Volume 10.1 fL (7.4-10.4) Neutrophils (%) (Auto) 69.8 % Lymphocytes (%) (Auto) 20.1 % Monocytes (%) (Auto) 9.5 % Eosinophils (%) (Auto) 0.2 % Basophils (%) (Auto) 0.2 % Neutrophils # (Auto) 3.37 K/uL (1.4-6.5) Lymphocytes # (Auto) 0.97 K/uL (1.2-3.4) Monocytes # (Auto) 0.46 K/uL (0.11-0.59) Eosinophils # (Auto) 0.01 K/uL (0-0.5) Basophils # (Auto) 0.01 K/uL (0-0.2) RDW Standard Deviation 41.5 fL (36.4-46.3) RDW Coefficient of Variation 12.3 % (11.5-14.5) Immature Granulocyte % (Auto) 0.2 % Immature Granulocyte # (Auto) 0.01 K/uL (0.00-0.02) Anion Gap 7.0 mmol/L (3-11) Est Creatinine Clear Calc Drug Dose 92.6 ml/min Estimated GFR () 103.6 Estimated GFR (Non- 89.4 BUN/Creatinine Ratio 13.4 (10-20) Calcium Level 8.7 mg/dl (8.5-10.1) Total Bilirubin 1.0 mg/dl (0.2-1) Direct Bilirubin 0.3 mg/dl (0-0.2) Aspartate Amino Transf (AST/SGOT) 13 U/L (15-37) Alanine Aminotransferase (ALT/SGPT) 16 U/L (12-78) Alkaline Phosphatase 67 U/L (45-117) Total Protein 7.5 gm/dl (6.4-8.2) Albumin 4.0 gm/dl (3.4-5.0) Lipase 77 U/L (73-393) Urine Color YELLOW Urine Appearance CLEAR (CLEAR) Urine pH 5.5 (4.5-7.5) Urine Specific [place] 1.024 (1.000-1.030) Urine Protein TRACE (NEG) Urine Glucose (UA) NEG (NEG) Urine Ketones 3+ (NEG) Urine Occult Blood 2+ (NEG) Urine Nitrite NEG (NEG) Urine Bilirubin NEG (NEG) Urine Urobilinogen NEG (NEG) Urine Leukocyte Esterase SMALL (NEG) Urine WBC (Auto) 5-10 /hpf (0-5) Urine RBC (Auto) 5-10 /hpf (0-4) Urine Hyaline Casts (Auto) 1-5 /lpf (0-5) Urine Epithelial Cells (Auto) >30 /lpf (0-5) Urine Bacteria (Auto) NEG (NEG) Urine Renal Epithelial Cells /lpf (0-5) Urine Test NEG (NEG) Laboratory results per my review. Medications Administered Medications (Trade) Dose Ordered Sig/Radha Route Start Time Stop Time Status Last Admin Dose Admin Sodium Chloride 2,000 ml @ 999 mls/hr Q2H1M STAT IV 09/30/17 10:12 09/30/17 12:12 DC 09/30/17 10:40 999 MLS/HR Ondansetron HCl (Zofran Inj) 4 mg NOW STAT IV 09/30/17 10:12 09/30/17 10:14 DC 09/30/17 10:39 4 MG Ketorolac Tromethamine (Toradol Inj) 30 mg NOW STAT IV 09/30/17 10:12 09/30/17 10:14 DC 09/30/17 10:39 30 MG Sodium Chloride 2,000 ml @ 999 mls/hr Q2H1M STAT IV 09/30/17 12:04 09/30/17 14:04 DC 09/30/17 12:10 999 MLS/HR Sodium Chloride 1,000 ml @ 999 mls/hr Q1H1M STAT IV 09/30/17 13:30 09/30/17 14:30 DC 09/30/17 13:45 999 MLS/HR Ondansetron HCl (Zofran Inj) 4 mg NOW STAT IV 09/30/17 13:52 09/30/17 13:53 DC 09/30/17 13:59 4 MG ED Course ED COURSE: Vital signs were reviewed and showed normal vital signs The patients medical record was reviewed The above diagnostic studies were performed and reviewed. ED treatments and interventions as stated above. 1005: The patient was evaluated in room B8. A complete history and physical examination was performed. 1012: Ordered Toradol 30 mg IV, Zofran 4 mg IV, Sodium Chloride 2000 ml @ 999 mls/hr IV. 1204: Ordered Sodium Chloride 2000 mls @ 999 mls/hr IV 1330: Ordered Sodium Chloride 1000 mls @ 999 mls/hr IV 1352: Ordered Zofran 4 mg IV 1453: Upon reevaluation, the patient is resting. I discussed my findings with the patient and she understands and agrees with the treatment plan. Based on the patients age, coexisting illnesses, exam and lab findings the decision to treat as an outpatient was made. The patient remained stable while under my care. The patient appeared well at the time of discharge. Medical Decision Differential diagnoses includes but is not limited to gastritis, peptic ulcer disease, GERD, gallbladder disease, pancreatitis, small bowel obstruction, acute coronary syndrome, pericarditis, ischemic bowel, irritable bowel disease, irritable bowel syndrome, appendicitis, diverticulitis, malignancy, hernia, urinary tract infection, torsion, /ectopic , perforation, trauma, infectious. Patient is a 19-year-old female who presents here for left flank pain she notes feels like her previous UTIs. She notes the pain is very severe and could feel her previous stone but is uncertain. She does admit to having fevers and nausea /vomiting. On exam vitals are stable. CBC along with BMP, LFTs, bilirubin lipase unremarkable. UA was a straight cath and did have blood, esterase, weights and epithelial cells and was contaminated. was negative. CT abdomen pelvis was negative for any stones. She was given 4 L of normal saline along with Zofran and Rocephin while in the ER. She only had one episode of vomiting. She is otherwise well-appearing. I did feel it is reasonable at this time to discharge her and she is tolerating p.o. with Zofran and Keflex as she has an allergy to Bactrim. She is up to the bedside discharged to follow- up with PCP as an outpatient. Discussed with Pt concerning signs and symptoms to watch out for. Pt was instructed to follow up with their PCP and discussed with the patient their option to return to the ED at anytime for persistent or worsening symptoms. The appropriate anticipatory guidance and out-patient management, including indications for return to the emergency department, were explained at length to the patient and understood. Medication Reconcilliation Current Medication List: was personally reviewed by me Blood Pressure Screening Patient's blood pressure: Normal blood pressure Blood pressure disposition: Did not require urgent referral Impression Primary Impression: UTI (urinary tract infection) Additional Impression: Nausea and vomiting Scribe Attestation The scribe's documentation has been prepared under my direction and personally reviewed by me in its entirety. I confirm that the note above accurately reflects all work, treatment, procedures, and medical decision making performed by me. Departure Information Dispostion Home / Self-Care Prescriptions Ondansetron Hcl (ZOFRAN) 4 Mg Tab 4 MG PO TID Y for Nausea for 10 Days, #30 TAB Prov: Drew Lora, DO 09/30/17 Cephalexin Monohydrate (KEFLEX) 500 Mg Cap 500 MG PO TID, #30 CAP Prov: Drew Lora, DO 09/30/17 Referrals No Doctor, Assigned (PCP) Forms HOME CARE DOCUMENTATION FORM, IMPORTANT VISIT INFORMATION Patient Instructions My [facility] Additional Instructions Please follow up with your primary care doctor with in the next 24 hours. Any worsening of your symptoms, please return to the ED immediately. This includes any fevers greater than 100.4, worsening pain, chest pain, shortness breath, persistent nausea, vomiting, unable to eat or drink, or any other concerning signs or symptoms from your standpoint. Please take antibiotics as prescribed. Please take Zofran as needed for nausea vomiting. Problem Qualifiers Primary Impression: UTI (urinary tract infection) Urinary tract infection type: acute cystitis Hematuria presence: without hematuria Qualified Codes: N30.00 - Acute cystitis without hematuria Additional Impression: Nausea and vomiting Vomiting type: unspecified Vomiting Intractability: non-intractable Qualified Codes: R11.2 - Nausea with vomiting, unspecified
== END 2017-09-30 15:15 | disposition home or self-care (01) ==
LOC: C.EDB 09:40
DX: N30.01 Acute cystitis with hematuria (principal); R11.2 Nausea with vomiting, unspecified; Z88.2 Allergy status to sulfonamides; Z88.8 Allergy status to other drugs, medicaments and biological substances; Z88.4 Allergy status to anesthetic agent

== ENCOUNTER 2018-12-23 13:19 | Inpatient (IN) ==
[2018-12-23] MEDS ORDERED: ONDANSETRON INJ 2 MG/ML 2 ML VIAL IV STA (14:17)
[2018-12-23] MEDS ORDERED: KETOROLAC TROMETHAMINE 15 MG/ML VIAL IV STA (14:17)
[2018-12-23] MEDS ORDERED: methylPREDNISolone 60 MG in SYRINGE 1 ML IV STA (14:17)
[2018-12-23] MEDS ORDERED: MoRPHine SULFATE 4 MG/ML 1 ML CARP\\VIAL IV STA (14:17)
[2018-12-23] MEDS ORDERED: ACETAMINOPHEN 1,000 MG/100 ML VIAL IV STA (14:19)
[2018-12-23] MEDS ORDERED: SODIUM CHLORIDE 0.9% 1000ML 1,000 ML IV SCH (14:30)
[2018-12-23 15:02] LABS: Basophils # (auto) 0.01 K/uL (0-0.2); Basophils % (auto) 0.2 %; Eosinophils # (auto) 0.02 K/uL (0-0.5); Eosinophils % (auto) 0.3 %; Hematocrit (blood only) 36.8 % (37-47); Hemoglobin 12.8 g/dL (12.0-16.0); Immature Granulocytes # (auto) 0.01 K/uL (0.00-0.02); Immature Granulocytes % (auto) 0.2 %; Lymphocytes # (auto) 1.09 K/uL (1.2-3.4); Mean Corpuscular Hemoglobin 31.1 pg (25-34); Mean Corpuscular Hgb Conc 34.8 g/dL (32-36); Mean Corpuscular Volume 89.3 fL (80-100); Mean Platelet Volume 10.1 fL (7.4-10.4); Monocytes # (auto) 0.41 K/uL (0.11-0.59); Monocytes % (auto) 6.8 %; Neutrophils % (auto) 74.5 %; Platelet Count 125 K/uL (130-400); RDW Coefficient of Variation 12.2 % (11.5-14.5); RDW Standard Deviation 39.4 fL (36.4-46.3); Red Blood Count 4.12 M/uL (4.2-5.4); White Blood Count 6.04 K/uL (4.8-10.8)
[2018-12-23 15:28] LABS: BUN Creatinine Ratio 8.3 (10-20); Calcium 8.7 mg/dl (8.5-10.1); Creatinine Clr Calc Pharmacy 96.1 ml/min; Est GFR (African American) 108.9; Est GFR (Non-African American) 93.9; Magnesium 1.8 mg/dl (1.8-2.4); Potassium 3.7 mmol/L (3.5-5.1)
[2018-12-23 15:31] LABS: Albumin Globulin Ratio 1.1 (0.9-2); Bilirubin,Total 0.5 mg/dl (0.2-1); Globulin 3.7 gm/dl (2.5-4.0); Total Protein 7.7 gm/dl (6.4-8.2)
[2018-12-23] MEDS ORDERED: DiphenhydrAMINE HCL 50 MG/ML VIAL IV STA (15:51)
[2018-12-23] MEDS ORDERED: ONDANSETRON INJ 2 MG/ML 2 ML VIAL IV PRN (15:52)
[2018-12-23] MEDS ORDERED: ACETAMINOPHEN 1,000 MG/100 ML VIAL IV PRN (15:54)
[2018-12-23] MEDS ORDERED: PIPERACILL/TAZOBAC CONSULT ACTIVE PRN (15:55)
[2018-12-23] MEDS ORDERED: DiphenhydrAMINE HCL 50 MG/ML VIAL IV PRN (15:56)
--- NOTE | 2018-12-23 16:17 | History & Physical Report ---
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 Patient reports her fevers were as high as 105 F. Patient has associated mouth and lip swelling. She also reports blisters of the lips previously. She has poor oral appetite and complaints of pain with swallowing. She generally takes Adderall at home but not in recent days because of pain. Patient denies skin blisters of the hands or the feet. Poor urine output because of dehydration. Patient denies shortness of breath or chest pain or abdomen pain. Denies recent sexual contacts. denies recent tattoos. denies tobacco use Family History: patient denies family health history Allergies: Patient reports that in the past her worst allergy reactions were hives, reports sulfa antibiotics allergies and also to IV dye contrast and rash to Ioversol. 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 Patient reports her fevers were as high as 105 F. Patient has associated mouth and lip swelling. She also reports blisters of the lips previously. She has poor oral appetite and complaints of pain with swallowing. She generally takes Adderall at home but not in recent days because of pain. Patient denies skin blisters of the hands or the feet. Poor urine output because of dehydration.Patient denies shortness of breath or chest pain or abdomen pain. Denies recent sexual contacts. denies recent tattoos -review of recent workup in the previous ED visits 12/21/18 strep screening is negative and 12/21/18 blood cultures negative -On this admission in the ED, the Ed provider ordered solumedrol 60 mg IV x 1. agree with IV steroids to attempt to reduce inflammation. continue solumedrol as 20 mg IV daily starting on 12/24/18. Also give IV benadryl. prn acetaminophen for pain or fever. prn IV Toradol for moderate pain. prn IV dilaudid for severe pain. Chloraseptic (Phenol Oral [place] prn for throat pain. give IV fluids and try puree foods for the dehydration. 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 Patients with severe odynophagia or dysphagia: IV: 5 mg/kg/dose every 8 hours; patients who rapidly improve can be switched to an oral antiviral to complete a total of 7 to 14 days of therapy. will start acyclovir IV -although previous blood cultures were negative, because of worsening symptoms, follow blood cultures drawn on 12/23/18 and start Zosyn -place on contact precautions for now as it is unclear as to etiology of symptoms -request Infectious disease consult attention deficit hyperactivity disorder (ADHD) -continue home dose Adderall if patient can take the oral pill DVT ppx: SCDs Full Code Status History of Present Illness Primary Care Provider: Taurus Cruz DO Allergies Allergy/AdvReac Type Severity Reaction Status Date / Time Iodinated Contrast Media Allergy Severe THROAT Verified 12/23/18 16:23 CLOSES Sulfa (Sulfonamide Allergy Intermediate RASH-HIVES Verified 12/23/18 16:23 Antibiotics) tramadol Allergy Intermediate RASH-HIVES Verified 12/23/18 16:23 Home Medications Home Medications Medication Instructions Recorded Confirmed Type dextroamphetamine-amphetamine 20 mg PO QAM 12/21/18 12/23/18 History [Adderall XR] Past Med/Surg History Medical History Pyelonephritis (Chronic) UTI (urinary tract infection) (Chronic) Clostridium difficile infection (Chronic) Patient denies medical problems Surgical History Hx of cholecystectomy Family History Other No pertinent family history Social History Preferred Language: Turkmen Communication Ability: Effective Visual Impairment: No Limitations Hearing Ability: Normal Vinyl Installer Required: No Beliefs That Will Affect Care: None Current Living Situation: Alone Current Living Situation Comment: lives with 2 sons current occupational status: employed Other Information That Helps Us Care for You: No Feels Safe at Home: Yes Safety Concerns: Feels Safe At This Time Smoking Status: Never smoker Hx Alcohol Use: No Hx Substance Use: No Review of Systems Review of Systems: All systems reviewed & are unremarkable except as noted in HPI & below Physical Exam Eyes: PERRL, conjunctivae normal, anicteric sclerae EOM intact bilaterally ENMT: Patient has hoarse voice, patient reports swelling of upper palate of mouth. There is lip swelling. There is crusted lesion of popped blister that looks almost like impetigo Neck: normal visual inspection Respiratory: normal respiratory effort, lungs clear to auscultation Cardiovascular: Rate/Rhythm: regular rate and regular rhythm Gastrointestinal (Abdomen): normal bowel sounds, soft, nontender, no hepatosplenomegaly Musculoskeletal: no cyanosis or clubbing, extremities motor strength 5/5 Head/Neck/Chest: normocephalic and head atraumatic Skin: no blisters of the hands or feet Neurologic: PERRL, EOMI, accommodation nl, no face palsy, no dysarthria CN's II-XI intact bilaterally Results & Data Vital Signs (Past 12 Hours) Vital Signs Temp Pulse Pulse Resp BP BP Pulse Ox 12/23/18 16:02 76 20 101/68 99 12/23/18 15:19 70 20 100/60 99 12/23/18 13:34 37 C 95 H 18 104/73 97 Code Status & VTE Plan VTE Prophylaxis Plan VTE Prophylaxis will be ordered: Yes
[2018-12-23] MEDS ORDERED: ACETAMINOPHEN SOLN 325 MG/10.15 ML UDC PO PRN (16:37)
--- NOTE | 2018-12-23 16:41 | Emergency Department Note ---
Entered by Ryan Vega acting as a scribe for History of Present Illness General Chief complaint: Fever Stated complaint: FEVER,BLISTERS Time Seen by Provider: 12/23/18 14:11 Source: patient History of Present Illness Provider complaint: sores in mouth Onset (ago): day(s) 1 Location: face and mouth Pain Consistency: + constant Maximum Pain Intensity: 10 Relieved By: + none Associated symptoms: + denies other symptoms, + fever/chills, + loss of appetite, + nausea/vomiting and + other (drowsy, no vomting) The patient is a 28 y/o female who presents to the emergency department for evaluation of constant sores on/in her mouth that began this morning. The patient notes that she had a fever with a high heart rate on Saturday and Saturday. The patient states that she has sores in her mouth that began today so she went to her doctors office and she was sent to ED from Dr. Wilburn office for dehydration. She states that she is nauseated, cannot eat, has intermittent fevers, has drowsiness, and is in a lot of pain which Tylenol does not help. She reports that when she came in Saturday she was discharged with medications for a UTI which she was told not to continue to take because her culture was not growing anything. The patient also reports shooting pain from her neck to her ears. The patient denies any other symptoms. The patient was in the ED on the and the 22 of December. On the she was given antibiotics for a possible kidney infection, but urine culture came back negative so the antibiotics were stopped. On the a strep test and flu swab came back negative, illness was thought to be viral. Home Medications Home Medications Medication Instructions Recorded Confirmed Type dextroamphetamine-amphetamine 20 mg PO QAM 12/21/18 12/23/18 History [Adderall XR] Allergies Allergy/AdvReac Type Severity Reaction Status Date / Time Iodinated Contrast Media Allergy Severe THROAT Verified 12/23/18 16:23 CLOSES Sulfa (Sulfonamide Allergy Intermediate RASH-HIVES Verified 12/23/18 16:23 Antibiotics) tramadol Allergy Intermediate RASH-HIVES Verified 12/23/18 16:23 Past Med/Surg History Medical History Pyelonephritis (Chronic) UTI (urinary tract infection) (Chronic) Clostridium difficile infection (Chronic) Patient denies medical problems Surgical History Hx of cholecystectomy Family History Other No pertinent family history Social History Preferred Language: Turkish Communication Ability: Effective Visual Impairment: No Limitations Hearing Ability: Normal K 9 Handler/ Deputy Required: No Beliefs That Will Affect Care: None Current Living Situation: Alone Current Living Situation Comment: lives with 2 sons current occupational status: employed Other Information That Helps Us Care for You: No Feels Safe at Home: Yes Safety Concerns: Feels Safe At This Time Smoking Status: Never smoker Hx Alcohol Use: No Hx Substance Use: No Review of Systems See HPI for pertinent positives & negatives. and A total of 10 systems reviewed and were otherwise negative Physical Exam Vital Signs Vital Signs - 24 hr 12/23/18 15:19 Pulse Rate [Finger] 70 Respiratory Rate 20 Blood Pressure [Left Arm] 100/60 Blood Pressure Mean [Left Arm] 73 Pulse Oximetry 99 GENERAL: Patient is in no acute distress. HEENT: No acute trauma, normocephalic atraumatic, mucous membranes moist, no nasal congestion, no scleral icterus. Ulcers on her lips tongue and pharynx. TMs clear bilaterally. NECK: No stridor, no adenopathy, no meningismus, trachea is midline. LUNGS: Clear to auscultation bilaterally, no wheeze, no rhonchi, breath sounds equal. HEART: tachycardiac with a regular rhythm, no murmurs. ABDOMEN: Soft, nontender, bowel sounds positive, no hernias, no peritonitis. EXTREMITIES: No cyanosis or edema, full range of motion of all the joints without pain or difficulty, no signs for acute trauma. NEUROLOGIC: Oriented x 3, no acute motor or sensory deficits, no focal weakness. SKIN: No rash, no jaundice, no diaphoresis. Course 1413: Past medical records reviewed. The patient was evaluated in room B08. A complete history and physical exam was performed. 1523: I spoke with Aury Peace [facility] She will evaluate for further management. Administered Medications Amphetamine/Dextroamphetamine (Adderall Xr) 20 mg PO QAM JOSH Stop: 01/07/19 08:59 Last Admin: 12/24/18 07:59 Dose: Not Given Documented by: [id number] Hydromorphone HCl (Dilaudid) 0.5 mg IV Q8H PRN PRN Reason: Severe Pain Stop: 01/06/19 16:00 Last Admin: 12/24/18 06:42 Dose: 0.5 mg Documented by: [id number] Admin: 12/23/18 20:47 Dose: 0.5 mg Documented by: [id number] Piperacillin Sod/Tazobactam (Sod 3.375 gm/ Dextrose) 115 mls @ 28.75 mls/hr IV Q8H JOSH; Protocol Stop: 12/26/18 00:00 Last Infusion: 12/24/18 12:00 Dose: 0 mls/hr Documented by: [id number] Admin: 12/24/18 08:00 Dose: 28.8 mls/hr Documented by: [id number] Infusion: 12/24/18 04:40 Dose: 0 mls/hr Documented by: [id number] Admin: 12/24/18 00:12 Dose: 28.8 mls/hr Documented by: [id number] Sodium Chloride (Nss 1000ml) 1,000 mls @ 80 mls/hr IV .[id number] JOSH Stop: 01/22/19 18:14 Last Admin: 12/24/18 04:10 Dose: 80 mls/hr Documented by: [id number] Infusion: 12/24/18 04:10 Dose: 80 mls/hr Documented by: [id number] Infusion: 12/23/18 18:53 Dose: 80 mls/hr Documented by: [id number] Infusion: 12/23/18 18:22 Dose: 0 mls/hr Documented by: [id number] Admin: 12/23/18 17:50 Dose: 80 mls/hr Documented by: [id number] Methylprednisolone 20 mg/ (Syringe) 0.32 mls @ 1.5 mls/min IV DAILY JOSH Stop: 01/23/19 08:59 Last Admin: 12/24/18 07:57 Dose: 1.5 mls/min Documented by: [id number] Acyclovir Sodium 360 mg/ (Dextrose) 107.2 mls @ 100 mls/hr IV Q8H JOSH Stop: 01/02/19 18:59 Last Infusion: 12/24/18 13:40 Dose: 0 mls/hr Documented by: [id number] Admin: 12/24/18 12:34 Dose: 100 mls/hr Documented by: [id number] Infusion: 12/24/18 05:13 Dose: 0 mls/hr Documented by: [id number] Admin: 12/24/18 04:06 Dose: 100 mls/hr Documented by: [id number] Infusion: 12/23/18 20:47 Dose: 0 mls/hr Documented by: [id number] Admin: 12/23/18 19:37 Dose: 100 mls/hr Documented by: [id number] Ketorolac Tromethamine (Toradol) 15 mg IV Q6H PRN PRN Reason: Moderate Pain Stop: 12/28/18 16:00 Last Admin: 12/24/18 00:20 Dose: 15 mg Documented by: [id number] Phenol (Chloraseptic 1.4% [place]) 1 sprays MT Q12 PRN PRN Reason: throat pain Stop: 01/22/19 15:52 Last Admin: 12/23/18 19:38 Dose: 1 sprays Documented by: [id number] Discontinued Medications Diphenhydramine HCl (Benadryl) 12.5 mg IV ONCE STA Stop: 12/23/18 15:52 Last Admin: 12/23/18 16:04 Dose: 12.5 mg Documented by: [id number] Acetaminophen (Ofirmev) 1,000 mg in 100 mls @ 400 mls/hr IV NOW STA Stop: 12/23/18 14:33 Last Infusion: 12/23/18 15:53 Dose: 0 mls/hr Documented by: [id number] Admin: 12/23/18 14:55 Dose: 400 mls/hr Documented by: [id number] Sodium Chloride (Nss 1000ml) 1,000 mls @ 999 mls/hr IV .Q1H1M JOSH Stop: 12/23/18 15:30 Last Infusion: 12/23/18 15:54 Dose: 0 mls/hr Documented by: [id number] Admin: 12/23/18 14:43 Dose: 999 mls/hr Documented by: [id number] Methylprednisolone 60 mg/ (Syringe) 1.96 mls @ 1.5 mls/min IV NOW STA Stop: 12/23/18 14:18 Last Admin: 12/23/18 16:04 Dose: 1.5 mls/min Documented by: [id number] Piperacillin Sod/Tazobactam (Sod 3.375 gm/ Dextrose) 115 mls @ 230 mls/hr IV ONE ONE; Protocol Stop: 12/23/18 18:44 Last Infusion: 12/23/18 18:53 Dose: 0 mls/hr Documented by: [id number] Admin: 12/23/18 18:22 Dose: 230 mls/hr Documented by: [id number] Ketorolac Tromethamine (Toradol) 15 mg IV NOW STA Stop: 12/23/18 14:18 Last Admin: 12/23/18 14:55 Dose: 15 mg Documented by: [id number] Methylprednisolone (Solumedrol) 20 mg IV NOW STA Stop: 12/23/18 15:52 Last Admin: 12/23/18 17:29 Dose: Not Given Documented by: [id number] Morphine Sulfate (Morphine Sulfate) 4 mg IV NOW STA Stop: 12/23/18 14:18 Last Admin: 12/23/18 14:55 Dose: 4 mg Documented by: [id number] Ondansetron HCl (Zofran) 4 mg IV NOW STA Stop: 12/23/18 14:18 Last Admin: 12/23/18 14:55 Dose: 4 mg Documented by: [id number] Medical Decision Making Differential Diagnosis Differential diagnosis: Viral illness, hand foot and mouth disease, herpangina, dehydration, electrolyte imbalance, UTI, sepsis, failed out patient management Medical Records Attestation: I reviewed the patient's medical records. Home Medications Current Medication List: was personally reviewed by me Laboratory Data Attestation: I reviewed the patient's lab results. Result diagrams: 12/23/18 14:44 12/23/18 14:44 Lab Results 12/23/18 12/23/18 12/23/18 Range/Units 14:44 14:44 14:44 WBC 6.04 (4.8-10.8) K/uL RBC 4.12 L (4.2-5.4) M/uL Hgb 12.8 (12.0-16.0) g/dL Hct 36.8 L (37-47) % MCV 89.3 (80-100) fL MCH 31.1 (25-34) pg MCHC 34.8 (32-36) g/dL RDW Std Deviation 39.4 (36.4-46.3) fL RDW Coeff of [place]fr[place] 12.2 (11.5-14.5) % Plt Count 125 L (130-400) K/uL MPV 10.1 (7.4-10.4) fL Immature Gran % (Auto) 0.2 % Neut % (Auto) 74.5 % Lymph % (Auto) 18.0 % [place] % (Auto) 6.8 % Eos % (Auto) 0.3 % Baso % (Auto) 0.2 % Immature Gran # (Auto) 0.01 (0.00-0.02) K/uL Neut # (Auto) 4.50 (1.4-6.5) K/uL Lymph # (Auto) 1.09 L (1.2-3.4) K/uL [place] # (Auto) 0.41 (0.11-0.59) K/uL Eos # (Auto) 0.02 (0-0.5) K/uL Baso # (Auto) 0.01 (0-0.2) K/uL Sodium 136 (136-145) mmol/L Potassium 3.7 (3.5-5.1) mmol/L Chloride 105 (98-107) mmol/L Carbon Dioxide 25 (21-32) mmol/L Anion Gap 6.0 (3-11) BUN 7 (7-18) mg/dl Creatinine 0.84 (0.6-1.2) mg/dl Est Cr Clr Drug Dosing 96.1 ml/min Est GFR ( Amer) 108.9 Est GFR (Non-Af Amer) 93.9 BUN/Creatinine Ratio 8.3 L (10-20) Glucose 85 (70-99) mg/dl Lactate 0.9 (0.4-2.0) mmol/L Calcium 8.7 (8.5-10.1) mg/dl Magnesium 1.8 (1.8-2.4) mg/dl Total Bilirubin 0.5 (0.2-1) mg/dl AST 11 L (15-37) U/L ALT 14 (12-78) U/L Alkaline Phosphatase 56 (45-117) U/L Total Protein 7.7 (6.4-8.2) gm/dl Albumin 4.0 (3.4-5.0) gm/dl Globulin 3.7 (2.5-4.0) gm/dl Albumin/Globulin Ratio 1.1 (0.9-2) Monoscreen (Negative) 12/23/18 Range/Units 14:44 WBC (4.8-10.8) K/uL RBC (4.2-5.4) M/uL Hgb (12.0-16.0) g/dL Hct (37-47) % MCV (80-100) fL MCH (25-34) pg MCHC (32-36) g/dL RDW Std Deviation (36.4-46.3) fL RDW Coeff of Wilfrido (11.5-14.5) % Plt Count (130-400) K/uL MPV (7.4-10.4) fL Immature Gran % (Auto) % Neut % (Auto) % Lymph % (Auto) % [place] % (Auto) % Eos % (Auto) % Baso % (Auto) % Immature Gran # (Auto) (0.00-0.02) K/uL Neut # (Auto) (1.4-6.5) K/uL Lymph # (Auto) (1.2-3.4) K/uL [place] # (Auto) (0.11-0.59) K/uL Eos # (Auto) (0-0.5) K/uL Baso # (Auto) (0-0.2) K/uL Sodium (136-145) mmol/L Potassium (3.5-5.1) mmol/L Chloride (98-107) mmol/L Carbon Dioxide (21-32) mmol/L Anion Gap (3-11) BUN (7-18) mg/dl Creatinine (0.6-1.2) mg/dl Est Cr Clr Drug Dosing ml/min Est GFR ( Amer) Est GFR (Non-Af Amer) BUN/Creatinine Ratio (10-20) Glucose (70-99) mg/dl Lactate (0.4-2.0) mmol/L Calcium (8.5-10.1) mg/dl Magnesium (1.8-2.4) mg/dl Total Bilirubin (0.2-1) mg/dl AST (15-37) U/L ALT (12-78) U/L Alkaline Phosphatase (45-117) U/L Total Protein (6.4-8.2) gm/dl Albumin (3.4-5.0) gm/dl Globulin (2.5-4.0) gm/dl Albumin/Globulin Ratio (0.9-2) Monoscreen Negative (Negative) Blood Pressure Blood Pressure Findings: Normal blood pressure MDM Narrative There is no leukocytosis or concerning anemia. Platelet count slightly low at 125. No significant electrolyte abnormality or kidney failure. No worrisome liver enzyme elevation. [place] testing was negative. On exam, the patient was mildly tachycardic, she seemed dehydrated. She had multiple ulcers in her mouth and to the back of her throat. Patient received IV saline, she was given IV Zofran for nausea, IV morphine for pain. She was given IV Solu-Medrol. Patient received IV Tylenol and IV Toradol. This is the patient's third visit to the ER in just 3 days. She was initially thought to have a pyelonephritis, however, her urine culture has returned nega tive. This illness is very likely viral. She though is not doing well as an outpatient and now cannot take anything by mouth, I do think a hospital stay is warranted. I spoke to the patient and case management. The on-call hospitalist was consulted. Impression & Plan Dehydration, Flu-like symptoms, Oral ulcer, Failure of outpatient treatment Discharge Plan Visit Data *Final* Discharge Date/Time: 12/23/18 17:35 Chief Complaint: Fever Stated Complaint: FEVER,BLISTERS ED Provider: Martin Ruiz Discharge Problem: Dehydration, Flu-like symptoms, Oral ulcer, Failure of outpatient treatment Patient Disposition: Admitted As Inpatient Discharge Instructions Interventions: ED Discharge Assessment Last Done: 12/23/18 17:35 The shane's documentation has been prepared under my direction and personally reviewed by me in its entirety. I confirm that the note above accurately reflects all work, treatment, procedures, and medical decision making performed by me.
[2018-12-23] MEDS: SODIUM CHLORIDE 0.9% 1000ML 1,000 ML IV SCH (17:50)
[2018-12-23] MEDS ORDERED: PIPERACILLIN/TAZOBACTAM 3.375 GM in DEXTROSE 5% 100 ML IV ONE (18:15)
[2018-12-23 18:35] LABS: Appearance Urine Cloudy (Clear); Bacteria Urine Automated Negative (Negative); Bilirubin Urine Negative (Negative); Blood Urine 2+ (Negative); Cast Urine Automated 0 /lpf (0-5); Color Urine Yellow; Epithelial Cell Urine Auto >30 /lpf (0-5); Glucose Urine UA Negative (Negative); Leukocyte Esterase Urine 1+ (Negative); Nitrite Urine Negative (Negative); Protein Urine Negative (Negative); Specific Gravity Urine 1.018 (1.000-1.030); Urobilinogen Urine Negative (Negative)
[2018-12-23 18:37] LABS: Ketones Urine 3+ (Negative)
[2018-12-23] MEDS: DEXTROSE 5% IV SCH (19:37)
[2018-12-23] MEDS: ACYCLOVIR SOD IV SCH (19:37)
[2018-12-23] MEDS: CHLORASEPTIC 1.4% SOLN 180 ML BTL MT PRN (19:38)
[2018-12-23] MEDS: HYDROmorphone INJ 0.5 MG/0.5 ML SYR IV PRN (20:47)
[2018-12-24] MEDS: PIPERACILLIN/TAZOBACTAM 3.375 GM in DEXTROSE 5% 100 ML IV SCH ×4 (00:12→23:18)
[2018-12-24] MEDS: KETOROLAC TROMETHAMINE 15 MG/ML VIAL IV PRN ×2 (00:20→16:14)
[2018-12-24] MEDS: ACYCLOVIR SOD IV SCH ×3 (04:06→18:02)
[2018-12-24] MEDS: DEXTROSE 5% IV SCH ×3 (04:06→18:02)
[2018-12-24] MEDS: SODIUM CHLORIDE 0.9% 1000ML 1,000 ML IV SCH ×2 (04:10→16:14)
[2018-12-24] MEDS: HYDROmorphone INJ 0.5 MG/0.5 ML SYR IV PRN ×2 (06:42→18:01)
[2018-12-24] MEDS: methylPREDNISolone 20 MG in SYRINGE 0 ML IV SCH (07:57)
[2018-12-24] MEDS: AMPHETAMINE ASP/SULF/DEXTRAMPH ER 20 MG CAP PO SCH (07:59)
--- NOTE | 2018-12-24 10:17 | Infectious Disease Consult ---
Date of Consultation December 24, 2018 Assessment & Plan (1) Oral ulcer: 48-year-old female with acute onset of oral ulcerations and fever. It is possible that this is acute HSV infection, which should respond quickly to acyclovir. Other viral etiologies such as coxsackie infection also possible. Wonder about the possibility of Behcet's syndrome given history of arthritis and uveitis along with current oral ulcerations. For now patient to be treated with acyclovir and Zosyn pending further culture results. May want to consider rheumatology consult for their input. Would obtain further studies for possible vasculitis. Will discuss with all involved. Will follow. History of Present Illness Reason for Consultation: Oral infection Attending Physician: Eliane Reyes MD History of Present Illness 28-year-old female with a previous history of rheumatoid arthritis, recurrent uveitis, recurrent urinary tract infections and pyelonephritis, more remote history of C. difficile colitis, who was in usual state of health until last week when she developed nausea, anorexia, and fever which she reports as high as 105 degrees. She was seen twice in the emergency room, thought to possibly have recurrent urinary tract infection, and sent home with antibiotics which she did not take as of yet. She then awoke with severe multiple oral pharyngeal ulcerations, developed inability to eat or drink sufficiently, and was admitted to the hospital for further management. Has a history of herpetic cold sores, but none recently. Denies any recurrent oral ulcerations in the past otherwise. No history of genital ulcerations. Does have chronic arthralgias. She has been started empirically on acyclovir and Zosyn. Cultures are pending. Apart from mild thrombocytopenia and abnormal urinalysis, no other significant lab abnormalities found as of yet. Allergies Allergy/AdvReac Type Severity Reaction Status Date / Time Iodinated Contrast Media Allergy Severe THROAT Verified 12/23/18 16:23 CLOSES Sulfa (Sulfonamide Allergy Intermediate RASH-HIVES Verified 12/23/18 16:23 Antibiotics) tramadol Allergy Intermediate RASH-HIVES Verified 12/23/18 16:23 Home Medications Home Medications Medication Instructions Recorded Confirmed Type dextroamphetamine-amphetamine 20 mg PO QAM 12/21/18 12/23/18 History [Adderall XR] Patient History Medical History Pyelonephritis (Chronic) UTI (urinary tract infection) (Chronic) Clostridium difficile infection (Chronic) Patient denies medical problems Surgical History Hx of cholecystectomy Family History Other No pertinent family history Social History Preferred Language: Turkmen Communication Ability: Effective Visual Impairment: No Limitations Hearing Ability: Normal Avian Keeper Required: No Beliefs That Will Affect Care: None Current Living Situation: Alone Current Living Situation Comment: lives with 2 sons current occupational status: employed Other Information That Helps Us Care for You: No Feels Safe at Home: Yes Safety Concerns: Feels Safe At This Time Smoking Status: Never smoker Hx Alcohol Use: No Hx Substance Use: No Review of Systems Review of Systems: All systems reviewed & are unremarkable except as noted in HPI & below Physical Exam Constitutional: WD/WN, vitals as above comfortable; no acute distress Eyes: PERRL, conjunctivae normal, anicteric sclerae ENMT: Ears: no external ear abnormality Nose: no external nose abnormality Mouth: + oral mucosal abnormality (Multiple lip and oral ulcerations, lips are edematous) and + malodorous breath Neck: trachea midline, no thyromegaly neck nontender Respiratory: normal respiratory effort, lungs clear to auscultation normal percussion; does not use accessory muscles Cardiovascular: Rate/Rhythm: regular rate and regular rhythm Heart Sounds: normal S1 and normal S2; no gallop, no murmur and no cardiac rub Vessels: normal peripheral pulses; no JVD Gastrointestinal (Abdomen): normal bowel sounds, soft, nontender, no hepatosplenomegaly Musculoskeletal: no cyanosis or clubbing, extremities motor strength 5/5 Spine: thoracic spine normal to inspection and lumbar spine normal to inspection; no cervical spinal tenderness Skin: no rashes, warm and dry normal turgor; no lesions Neurologic: patellar DTR's 2+ bilat, sensation intact no focal motor deficits Psychiatric: A+Ox3, euthymic affect Orientation: cooperative Lymphatic: no cervical or axillary lymphadenopathy no inguinal lymphadenopathy Results & Data Vital Signs (Past 12 Hours) Vital Signs Temp Pulse Resp BP Pulse Ox 12/24/18 07:38 36.8 C 68 16 99/64 L 98 12/23/18 23:57 36.7 C 81 16 106/69 99 Laboratory Results Short CBC 12/23/18 Range/Units 14:44 WBC 6.04 (4.8-10.8) K/uL Hgb 12.8 (12.0-16.0) g/dL Hct 36.8 L (37-47) % Plt Count 125 L (130-400) K/uL BMP 12/23/18 14:44 Sodium 136 Potassium 3.7 Chloride 105 Carbon Dioxide 25 BUN 7 Creatinine 0.84 Glucose 85 Calcium 8.7 Liver Function 12/23/18 Range/Units 14:44 Total Bilirubin 0.5 (0.2-1) mg/dl AST 11 L (15-37) U/L ALT 14 (12-78) U/L Alkaline Phosphatase 56 (45-117) U/L Albumin 4.0 (3.4-5.0) gm/dl Urine 12/23/18 Range/Units 18:00 Urine Color Yellow Urine Appearance Cloudy A (Clear) Urine pH 6.0 (4.5-7.5) Ur Specific [place] 1.018 (1.000-1.030) Urine Protein Negative (Negative) Urine Glucose (UA) Negative (Negative) PG Care Time/CCT Total # of Minutes Spent Total Time Spent with Patient: Total time spent is greater than 50% in coordination of care (as documented) at patient's floor/unit and/or counseling patient:
--- NOTE | 2018-12-24 12:44 | Hospitalist Progress Note ---
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 Denies recent sexual contacts. Denies any unprotected sex Workup in the previous ED visits 12/21/18 strep screening is negative and 12/21/18 blood cultures negative ID on board Continue Acyclovir for now Will D/C IV Zosyn if blood cx negative Continue pain control Continue monitor closely attention deficit hyperactivity disorder (ADHD) continue home dose Adderall if patient can take the oral pill DVT ppx: SCDs Full Code Status Subjective Pt was seen and examined Lying in bed with no distress Pt said that she continues to have soreness on her lips She said that she does not have any lesion in her hand and her vagina She denies any vision problem Denies any chest pain, palpitation, dizziness and SOB Physical Exam Physical Exam: General- No acute distress Head- atraumatic Eyes- PERRL, EOMI, ENT- lip and oral ulcerations and + malodorous breath Neck- supple, no JVD Lungs- clear to auscultation Heart- regular rhythm; no murmur Abdomen- normal bowel sounds, soft, nontender Extremities- no calf tenderness Neuro- alert, oriented x 3; PERRL, EOMI; no facial palsy; no dysarthria Skin- warm & dry Results & Data Vital Signs (Past 12 Hours) Vital Signs Temp Pulse Resp BP Pulse Ox 12/24/18 07:38 36.8 C 68 16 99/64 L 98
[2018-12-24] MEDS: CHLORASEPTIC 1.4% SOLN 180 ML BTL MT PRN (16:10)
[2018-12-25] MEDS: DEXTROSE 5% IV SCH ×3 (03:16→20:09)
[2018-12-25] MEDS: ACYCLOVIR SOD IV SCH ×3 (03:16→20:09)
[2018-12-25] MEDS: SODIUM CHLORIDE 0.9% 1000ML 1,000 ML IV SCH ×2 (04:29→16:11)
[2018-12-25] MEDS: HYDROmorphone INJ 0.5 MG/0.5 ML SYR IV PRN ×3 (04:32→21:45)
[2018-12-25 06:53] LABS: Creatinine Clr Calc Pharmacy 93.9 ml/min; Est GFR (African American) 105.8; Est GFR (Non-African American) 91.3
[2018-12-25] MEDS: PIPERACILLIN/TAZOBACTAM 3.375 GM in DEXTROSE 5% 100 ML IV SCH ×2 (09:48→16:08)
[2018-12-25] MEDS: AMPHETAMINE ASP/SULF/DEXTRAMPH ER 20 MG CAP PO SCH (09:48)
[2018-12-25] MEDS: methylPREDNISolone 20 MG in SYRINGE 0 ML IV SCH (09:48)
[2018-12-25] MEDS ORDERED: NYSTATIN 30 ML, DEXAMETHASONE CONC 3.75 MG, DiphenhydrAMINE Syrup 300 MG, ORA-SWEET SYR... PO PRN (12:53)
--- NOTE | 2018-12-25 19:07 | Hospitalist Progress Note ---
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 Denies recent sexual contacts. Denies any unprotected sex Workup in the previous ED visits 12/21/18 strep screening is negative and 12/21/18 blood cultures negative ID on board Continue Acyclovir for now Will D/C IV Zosyn since blood cx negative Continue pain control Continue monitor closely attention deficit hyperactivity disorder (ADHD) continue home dose Adderall if patient can take the oral pill DVT ppx: SCDs Full Code Status Subjective Pt was seen and examined. Lying in bed with no distress Pt said that she continues to have a lot of pain in her lips She said that she has not eaten anything because of her lips sore Denies any fever, palpitation and SOB Physical Exam Physical Exam: General- No acute distress Head- atraumatic Eyes- PERRL, EOMI, ENT- lip and oral ulcerations and + malodorous breath Neck- supple, no JVD Lungs- clear to auscultation Heart- regular rhythm; no murmur Abdomen- normal bowel sounds, soft, nontender Extremities- no calf tenderness Neuro- alert, oriented x 3; PERRL, EOMI; no facial palsy; no dysarthria Results & Data Vital Signs (Past 12 Hours) Vital Signs Temp Pulse Resp BP Pulse Ox 12/25/18 15:05 36.7 C 80 16 109/71 97
[2018-12-26] MEDS: SODIUM CHLORIDE 0.9% 1000ML 1,000 ML IV SCH ×2 (03:49→16:52)
[2018-12-26] MEDS: ACYCLOVIR SOD IV SCH ×3 (03:49→20:23)
[2018-12-26] MEDS: DEXTROSE 5% IV SCH ×3 (03:49→20:23)
[2018-12-26] MEDS: HYDROmorphone INJ 0.5 MG/0.5 ML SYR IV PRN ×2 (07:14→15:29)
[2018-12-26] MEDS: AMPHETAMINE ASP/SULF/DEXTRAMPH ER 20 MG CAP PO SCH (07:59)
[2018-12-26] MEDS: methylPREDNISolone 20 MG in SYRINGE 0 ML IV SCH (08:56)
--- NOTE | 2018-12-26 17:33 | Infectious Disease Progress Nt ---
Date of Service December 26, 2018 Assessment & Plan (1) Oral infection: Patient with oral ulcerations, blood cultures negative, EBV studies not consistent with acute infection. Would continue patient on acyclovir oral Valtrex to complete 7 days of therapy for possible HSV infection. Case di scussed with hospitalist. Continue to follow while in hospital. Review of Systems Review of Systems: All systems reviewed & are unremarkable except as noted in HPI & below Physical Exam Constitutional: WD/WN, vitals as above comfortable; no acute distress Eyes: PERRL, conjunctivae normal, anicteric sclerae ENMT: Ears: no external ear abnormality Nose: no external nose abnormality Mouth: + oral mucosal abnormality (Multiple lip and oral ulcerations, lips are edematous) and + malodorous breath Neck: trachea midline, no thyromegaly neck nontender Respiratory: normal respiratory effort, lungs clear to auscultation normal percussion; does not use accessory muscles Cardiovascular: Rate/Rhythm: regular rate and regular rhythm Heart Sounds: normal S1 and normal S2; no gallop, no murmur and no cardiac rub Vessels: normal peripheral pulses; no JVD Gastrointestinal (Abdomen): normal bowel sounds, soft, nontender, no hepatosplenomegaly Musculoskeletal: no cyanosis or clubbing, extremities motor strength 5/5 Spine: thoracic spine normal to inspection and lumbar spine normal to inspection; no cervical spinal tenderness Skin: no rashes, warm and dry normal turgor; no lesions Neurologic: patellar DTR's 2+ bilat, sensation intact no focal motor deficits Psychiatric: A+Ox3, euthymic affect Orientation: cooperative Lymphatic: no cervical or axillary lymphadenopathy no inguinal lymphadenopathy Results & Data Vital Signs (Past 12 Hours) Vital Signs Temp Pulse Resp BP Pulse Ox 12/26/18 14:55 36.6 C 67 17 113/74 99 12/26/18 07:04 36.8 C 71 18 117/82 97 Laboratory Results Laboratory Results - last 48 hr 12/25/18 06:04 Creatinine 0.86 Est Cr Clr Drug Dosing 93.9 Est GFR ( Amer) 105.8 Est GFR (Non-Af Amer) 91.3 Diagnostic Findings Microbiology 12/23/18 14:44 Blood Aerobic Blood Culture - Preliminary No growth in Aerobic bottle after 48 hours. 12/23/18 14:44 Blood Anaerobic Blood Culture - Preliminary No growth in Anaerobic bottle after 48 hours. 12/23/18 14:46 Blood Aerobic Blood Culture - Preliminary No growth in Aerobic bottle after 48 hours. 12/23/18 14:46 Blood Anaerobic Blood Culture - Final PG Care Time/CCT Total # of Minutes Spent Total Time Spent with Patient: Total time spent is greater than 50% in coordination of care (as documented) at patient's floor/unit and/or counseling patient:
--- NOTE | 2018-12-26 20:16 | Hospitalist Progress Note ---
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 Denies recent sexual contacts. Denies any unprotected sex Workup in the previous ED visits 12/21/18 strep screening is negative and 12/21/18 blood cultures negative ID on board Continue Acyclovir for now D/C IV Zosyn since blood cx negative Case discussed with ID to complete 7 days course of Acyclovir Pain improves significantly Continue monitor closely attention deficit hyperactivity disorder (ADHD) continue home dose Adderall if patient can take the oral pill DVT ppx: SCDs Full Code Status Disposition Will discharge home tomorrow Subjective Pt was seen and examined Lying in bed with no distress Pt said that her mouth ulcer pain improved She was able to tolerate soft diet Denies any chest pain, palpitation and SOB Physical Exam Physical Exam: General- No acute distress Head- atraumatic Eyes- PERRL, EOMI, ENT- lip and oral ulcerations and + malodorous breath Neck- supple, no JVD Lungs- clear to auscultation Heart- regular rhythm; no murmur Abdomen- normal bowel sounds, soft, nontender Extremities- no calf tenderness Neuro- alert, oriented x 3; PERRL, EOMI; no facial palsy; no dysarthria Results & Data Vital Signs (Past 12 Hours) Vital Signs Temp Pulse Resp BP Pulse Ox 12/26/18 14:55 36.6 C 67 17 113/74 99
[2018-12-27] MEDS: HYDROmorphone INJ 0.5 MG/0.5 ML SYR IV PRN ×3 (00:57→19:09)
[2018-12-27] MEDS: ACYCLOVIR SOD IV SCH ×3 (04:09→19:58)
[2018-12-27] MEDS: DEXTROSE 5% IV SCH ×3 (04:09→19:58)
[2018-12-27] MEDS: SODIUM CHLORIDE 0.9% 1000ML 1,000 ML IV SCH ×2 (04:09→16:06)
[2018-12-27] MEDS: AMPHETAMINE ASP/SULF/DEXTRAMPH ER 20 MG CAP PO SCH (08:35)
[2018-12-27] MEDS: methylPREDNISolone 20 MG in SYRINGE 0 ML IV SCH (09:39)
--- NOTE | 2018-12-27 11:48 | Consultation Report ---
DATE OF CONSULTATION: 12/27/2018 REASON FOR CONSULTATION: Oral lesions and swelling with new-onset left eye photophobia and pain. The patient is a 28-year-old female with a history of HSV in the past as well as rheumatoid arthritis and uveitis in the past who was admitted to the hospital a few days ago with oral swelling and infection. While her oral symptoms have started to improve on antiviral treatment as well as IV steroids this morning, her left eye started to flare up with her. In reviewing old office records, she did have a severe bout of uveitis in 2010 that was also associated with some oral lesions. On examination today, her visual acuity without glasses on up close with a near card was 20/60 in the right eye and 20/150 in the left. Her intraocular pressure was soft to palpation in both eyes. Her pupils were equal and reactive. She was photophobic in both eyes. On slit-lamp examination, she had trace injection of the left eye with +2 cell of the left anterior chamber. The rest of her anterior segment examination was normal for both eyes. In summary, she has a uveitis flare of the left eye with oral lesions. Behcet's should be considered based on her history, although she does not have any ulcerations of her conjunctivae seen on examination today. I have written orders for cyclogyl 1 drop 4 times a day to the left eye as well as prednisolone 1% every hour while awake to the left eye for the time being and I discussed with her following up with my office this week as an outpatient to see how her uveitis is responding. I also recommended a rheumatology consult as she will likely need future systemic management and she will likely need some form of steroid taper orally upon discharge. If you have any further questions, do not hesitate to contact me at [phone]. PCSA
[2018-12-27] MEDS: CYCLOPENTOLATE HCL 1% OP SOLN 2 ML BTL OPL SCH ×3 (12:37→19:14)
[2018-12-27] MEDS: prednisoLONE acetate 1% OP SUSP 5 ML BTL OPL SCH ×11 (12:42→22:07)
[2018-12-27] MEDS: KETOROLAC TROMETHAMINE 15 MG/ML VIAL IV PRN (16:07)
[2018-12-27] MEDS ORDERED: BISACODYL 10 MG SUPP PR STA (19:00)
--- NOTE | 2018-12-27 19:09 | Hospitalist Progress Note ---
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 Denies recent sexual contacts. Denies any unprotected sex Workup in the previous ED visits 12/21/18 strep screening is negative and 12/21/18 blood cultures negative ID on board Continue Acyclovir for a total of 7 days course Continue IV solumedrol Pain improves significantly Continue monitor closely Case discussed with Rheum Dr. Rodriges recommended to discharge on prednisone 20mg daily Follow up with rheum on discharge (Pt needs to call on Saturday for the a ppointment) Uveitis Possible related to Behcet Ophthalmology on board Case discussed with Ophth dr. Zepeda recommended Cyclogyl 1 drop 4 times a day to the left eye prednisolone 1% every hour while awake to the left eye Follow up with Ophthalmology this week outpatient attention deficit hyperactivity disorder (ADHD) continue home dose Adderall if patient can take the oral pill DVT ppx: SCDs Full Code Status Disposition Will discharge home tomorrow Subjective Pt was sen and examined Lying in bed with no distress Pt said that her left eye discomfort with photophobia She said that the her mouth ulcers improve She said that she is having tenderness in her R great toe Denies any chest pain, palpitation and SOB Physical Exam Physical Exam: General- No acute distress Head- atraumatic Eyes- Left eye photophobia ENT- lip and oral ulcerations and + malodorous breath Neck- supple, no JVD Lungs- clear to auscultation Heart- regular rhythm; no murmur Abdomen- normal bowel sounds, soft, nontender Extremities- no calf tenderness Neuro- alert, oriented x 3; PERRL, EOMI; no facial palsy; no dysarthria Results & Data Vital Signs (Past 12 Hours) Vital Signs Temp Pulse Resp BP Pulse Ox 12/27/18 15:23 36.6 C 84 17 116/78 97
[2018-12-28] MEDS: DEXTROSE 5% IV SCH ×2 (03:24→12:17)
[2018-12-28] MEDS: SODIUM CHLORIDE 0.9% 1000ML 1,000 ML IV SCH (03:24)
[2018-12-28] MEDS: ACYCLOVIR SOD IV SCH ×2 (03:24→12:17)
[2018-12-28] MEDS: HYDROmorphone INJ 0.5 MG/0.5 ML SYR IV PRN (03:29)
[2018-12-28] MEDS: prednisoLONE acetate 1% OP SUSP 5 ML BTL OPL SCH ×10 (06:05→15:13)
[2018-12-28] MEDS: CYCLOPENTOLATE HCL 1% OP SOLN 2 ML BTL OPL SCH ×3 (07:10→15:13)
[2018-12-28 07:51] VITALS: TEMP 98.2; O2SAT 97
[2018-12-28] MEDS: methylPREDNISolone 20 MG in SYRINGE 0 ML IV SCH (07:52)
[2018-12-28] MEDS: AMPHETAMINE ASP/SULF/DEXTRAMPH ER 20 MG CAP PO SCH (07:53)
[2018-12-28] MEDS ORDERED: HYDROCODONE/ACETAMOPHEN 5/325MG TAB PO PRN (11:44)
[2018-12-28] MEDS ORDERED: HYDROCODONE/ACETAMOPHEN 5/325MG TAB PO ONE (11:55)
[2018-12-28] MEDS ORDERED: VALACYCLOVIR HCL 500 MG TABLET PO SCH (14:00)
[2018-12-28 15:12] VITALS: BP 117/78; PULSE 65
--- NOTE | 2018-12-28 15:17 | Hospitalist Progress Note ---
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 Denies recent sexual contacts. Denies any unprotected sex Workup in the previous ED visits 12/21/18 strep screening is negative and 12/21/18 blood cultures negative ID on board Continue Acyclovir for a total of 7 days course IV solumedrol, will transition to oral Pain improves significantly Continue monitor closely Case discussed with Rheum Dr. Rodriges recommended to discharge on prednisone 20mg daily Follow up with rheum on discharge (Pt needs to call on Saturday for the appointment) Uveitis Possible related to Behcet Ophthalmology on board Case discussed with Ophth dr. Zepdea recommended Cyclogyl 1 drop 4 times a day to the left eye prednisolone 1% every hour while awake to the left eye Follow up with Ophthalmology this week outpatient Attention deficit hyperactivity disorder (ADHD) continue home dose Adderall if patient can take the oral pill DVT ppx: SCDs Full Code Status Disposition Will discharge home today Follow up with your primary care provider Dr. Amezcua on 12/31 @ 8:40AM Follow up with your Rheumatology Dr. Rodriges (Please call the office tomorrow to schedule for the appointment ) Follow up with Ophthalmology Dr. Zepeda this week to reevaluate for the Uveitis (Please call to schedule fo the appointment) Subjective Pt was seen and examined. Lying in bed with no distress Pt said that she feels much better. She said that she does not have any pain in her mouth She said that her left eye slightly improves. She tolerated her diet Denies any chest pain, palpitation, dizziness an SOB Physical Exam Physical Exam: General- No acute distress Head- atraumatic Eyes- Left eye photophobia ENT- lip and oral ulcerations dry Neck- supple, no JVD Lungs- clear to auscultation Heart- regular rhythm; no murmur Abdomen- normal bowel sounds, soft, nontender Extremities- no calf tenderness Neuro- alert, oriented x 3; PERRL, EOMI; no facial palsy; no dysarthria Results & Data Vital Signs (Past 12 Hours) Vital Signs Temp Pulse Resp BP Pulse Ox 12/28/18 07:45 36.8 C 56 L 16 127/63 97 12/28/18 03:32 36.9 C
--- NOTE | 2018-12-29 09:02 | Discharge Summary ---
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 Patient reports her fevers were as high as 105 F. Patient has associated mouth and lip swelling. She also reports blisters of the lips previously. She has poor oral appetite and complaints of pain with swallowing. She generally takes Adderall at home but not in recent days because of pain. Patient denies skin blisters of the hands or the feet. Poor urine output because of dehydration. Patient denies shortness of breath or chest pain or abdomen pain. Denies recent sexual contacts. denies recent tattoos. denies tobacco use Family History: patient denies family health history Allergies: Patient reports that in the past her worst allergy reactions were hives, reports sulfa antibiotics allergies and also to IV dye contrast and rash to Ioversol. Tramadol leads to rash/hives but not other narcotics December 23, 2018 Admission Exam Per Admitting Provider Eyes: PERRL, conjunctivae normal, anicteric sclerae EOM intact bilaterally ENMT: Patient has hoarse voice, patient reports swelling of upper palate of mouth. There is lip swelling. There is crusted lesion of popped blister that looks almost like impetigo Neck: normal visual inspection Respiratory: normal respiratory effort, lungs clear to auscultation Cardiovascular: regular rate and regular rhythm Gastrointestinal: normal bowel sounds, soft, nontender, no hepatosplenomegaly Musculoskeletal: no cyanosis or clubbing, extremities motor strength 5/5 Head/Neck/Chest: normocephalic and head atraumatic Skin: no blisters of the hands or feet Neurologic: PERRL, EOMI, accommodation nl, no face palsy, no dysarthria CN's II-XI intact bilaterally Principal Diagnosis Oral infection Lip ulceration Uveitis Attention deficit hyperactivity disorder (ADHD) Discharge Exam General- No acute distress Head- atraumatic Eyes- Left eye photophobia ENT- lip and oral ulcerations dry Neck- supple, no JVD Lungs- clear to auscultation Heart- regular rhythm; no murmur Abdomen- normal bowel sounds, soft, nontender Extremities- no calf tenderness Neuro- alert, oriented x 3; PERRL, EOMI; no facial palsy; no dysarthria Discharge Data Allergies Allergy/AdvReac Type Severity Reaction Status Date / Time Iodinated Contrast Media Allergy Severe THROAT Verified 12/23/18 16:23 CLOSES Sulfa (Sulfonamide Allergy Intermediate RASH-HIVES Verified 12/23/18 16:23 Antibiotics) tramadol Allergy Intermediate RASH-HIVES Verified 12/23/18 16:23 Consultations 12/23/18 15:39 ED Decision to Admit Stat 12/23/18 15:58 Consult Infectious Diseases Routine 12/27/18 09:37 Consult Ophthalmology Routine Hospital Course (1) Oral infection: Oral pain Lip ulceration Uveitis 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 Denies recent sexual contacts. Denies any unprotected sex Workup in the previous ED visits 12/21/18 strep screening is negative and 12/21/18 blood cultures negative ID on board Continue Acyclovir for a total of 7 days course IV solumedrol, will transition to oral Pain improves significantly Continue monitor closely Case discussed with Rheum Dr. Rodriges recommended to discharge on prednisone 20mg daily Follow up with rheum on discharge (Pt needs to call on Saturday for the appointment) Uveitis Possible related to Behcet Ophthalmology on board Case discussed with Ophth dr. Zepeda recommended Cyclogyl 1 drop 4 times a day to the left eye prednisolone 1% every hour while awake to the left eye Follow up with Ophthalmology this week outpatient Attention deficit hyperactivity disorder (ADHD) continue home dose Adderall if patient can take the oral pill DVT ppx: SCDs Full Code Status Disposition Will discharge home today Follow up with your primary care provider Dr. Amezcua on 12/31 @ 8:40AM Follow up with your Rheumatology Dr. Rodriges (Please call the office tomorrow to schedule for the appointment ) Follow up with Ophthalmology Dr. Zepeda this week to reevaluate for the Uveitis (Please call to schedule fo the appointment) Total Time Total Time Spent Total Time Spent (In Minutes): 35 minutes Total Time Includes: Examination of the Patient, Discharge Planning, Medication Reconciliation, Communication With Other Providers and Other Discharge Plan Discharge Items Patient Disposition: Home - Self-Care Reason For Visit: ORAL SWELLING, ORAL INFECTION Discharge Diagnosis: Oral infection Lip ulceration Uveitis Attention deficit hyperactivity disorder (ADHD) Activity: Resume your previous activity Activity Comment: as tolerated Non-emergency contact: Primary Care Provider and Remote Control Mirror Installer Call non-emergency contact if: you have any medication questions Follow-up/Referrals: Taurus Cruz DO [Primary Care Provider] - Diet: Regular Addtl Attending Provider Instructions: Follow up with your primary care provider Dr. Amezcua on 12/31 @ 8:40AM Follow up with your Rheumatology Dr. Rodriges (Please call the office tomorrow to schedule for the appointment ) Follow up with Ophthalmology Dr. Zepeda this week to reevaluate for the Uveitis (Please call to schedule fo the appointment) Do not drive or perform any machine while on hydrocodone Please hold next dose if you become drowsy and lethargy Pending Studies at Discharge: No Stand-Alone Forms[facility], Work/School Release (Inpt), Smoking Cessation Medications and DC Order Prescriptions: New hydrocodone-acetaminophen [Oakley] 5-325 mg Tablet 1 tab PO Q8H PRN (Reason: pain) Qty: 6 RF: 0 valacyclovir 500 mg Tablet 1,000 mg PO TID 2 Days Qty: 12 RF: 0 cyclopentolate 1 % Drops 1 drp OPL [id number] Qty: 1 RF: 0 prednisolone acetate 1 % Drops,Suspension 1 drp OPL Q1HWA Qty: 1 RF: 0 prednisone 20 mg tablet 20 mg PO DAILY Qty: 6 RF: 0 Continued dextroamphetamine-amphetamine [Adderall XR] 20 mg Capsule,Extended Release 24hr 20 mg PO QAM RF: 0 Discharge Orders: Discharge Order (Routine); Ordered 12/28/18 Ordered By: Eliane Jaimes/Other Patient Handouts: Uveitis Admission Data Admit Date/Time: 12/23/18 16:02 Attending Provider: Eliane Reyes Admit Provider: Suleiman Dodge Primary Care Provider: Taurus Cruz Other Providers: Suleiman Dodge ; Thais Alvarez ; Aravind Zepeda Other Interventions: Discharge Summary Assessment (RN) Last Done: 12/28/18 15:44 DC Date/Time DO NOT enter until pt leaves facility: 12/28/18 16:45
== END 2018-12-28 16:45 | disposition home or self-care (01) | DRG 546 ==
LOC: ED 13:19 → 3E 16:02 → SUATTDRO 16:02 → 3E 17:35

== ENCOUNTER 2019-09-09 13:39 | Observation (INO) ==
--- NOTE | 2019-09-09 14:05 | Emergency Department Note ---
Impression & Plan Slurred speech, Arm numbness, ED Provider Note NAME: ANASTASIA Kaye CHRONISTER AGE: 29 SEX: F : 1990 ARRIVES VIA: Walk-In INFORMANT: Patient ED PROVIDER(S): Drew Lora DO CHIEF COMPLAINT: Numbness and slurred speech HPI: Patient is a 29-year-old female who presents the ER for perioral numbness associated with complete tongue numbness as well as right arm numbness. Associated with this was some slurred speech. This lasted for about 20 minutes. Now she just has residual numbness in the right upper extremity. Numbness is circumferentially around all her digits tracking up to her elbow. She denies any headache or change in vision initially. She does have some pain behind her eyes. 8 out of 10. Sharp stabbing. No chest pain, shortness of breath, nausea, vomiting or diarrhea. She does admit to swelling. She is a at 36 weeks. She follows with NURSES' ASSOCIATION COUNSELOR. She has had this numbness and bilateral eye pain 3 times in the past 2 months. No other exacerbating remitting factors. Abdominal pain. No vaginal bleeding or vaginal discharge. ROS: See above HPI for pertinent positives & negatives. A total of 10 systems reviewed and were otherwise negative. PAST MEDICAL HISTORY:See Below PAST SURGICAL HISTORY:See Below FAMILY HISTORY:See Below SOCIAL HISTORY:See Below HOME MEDICATIONS:See Below ALLERGIES:See Below VITALS:See Below PHYSICAL EXAMINATION: GENERAL: Sitting up in bed, alert, well appearing, well nourished, no distress, non-toxic EYE EXAM: normal conjunctiva. PERRL and EOM's grossly intact. OROPHARYNX: no exudate, no erythema, lips, buccal mucosa, and tongue normal and mucous membranes are moist NECK: supple, no nuchal rigidity, no adenopathy, non-tender LUNGS: Clear to auscultation. Normal chest wall mechanics HEART: no murmurs, S1 normal and S2 normal ABDOMEN: abdomen soft, non-tender, normo-active bowel sounds, no masses, no rebound or guarding. BACK: Back is symmetrical on inspection and there is no deformity, no midline tenderness, no CVA tenderness. SKIN: no rashes and no bruising UPPER EXTREMITIES: upper extremities are grossly normal. LOWER EXTREMITIES: No pitting edema. NEURO EXAM: Normal sensorium, cranial nerves II-XII intact, normal speech, no weakness of arms, no weakness of legs. No drift. Finger to nose intact. Gross sensation intact. [id number] intact. Rapid alternating movements of upper extremities intact. MEDICAL DECISION MAKING: Patient is a 29-year-old female at 36 weeks who presents the ER for paresthesias, numbness and slurred speech. On my exam she is completely neurologically intact with the exception of subjective numbness. IV was established blood was obtained and shows no significant leukocytosis or anemia. INR unremarkable. BMP with a slightly low CO2. LFTs troponin was unremarkable. Platelets were normal. Discussed with neurology. MRI of the brain and MRV were both negative. Discussed with NUR[employer]ES' ASSOCIATION COUNSELOR and patient was admitted for further observation and 24-hour urine protein. Patient was updated bedside. She was given IV fluids IV Benadryl and Tylenol. Triage Nursing notes reviewed. Prior medical records reviewed Vital Signs: reviewed and remarkable for no significant abnormalities Differential diagnosis: Differential Diagnosis includes but is not limited to ischemic Stroke, hemorrhagic stroke, bells palsy, mass, neoplasm, migraine headache, seizure, subarachnoid hemorrhage, TIA, and transient global amnesia. ER treatment provided: See below Diagnostics interpreted by me: ECG: Sinus rhythm rate of [address] wave changes in the septal leads No PVCs Normal QTC Cardiac Monitoring: An order was placed for continuous cardiac monitoring. The monitor shows a rate of 74 with sinus rhythm. Laboratory studies: As stated above and show below. Imaging studies: MRI of the brain as well as MRV were both negative. Consultation(s): Discussed with Dr. Nelson who recommended MRI and MRV and admission for further work-up and 24-hour urine protein Discussed with Dr. Corley for admission ED COURSE: Procedures: none Critical Care: None Past Med/Surg History Social History Smoking Status: Never smoker Second Hand Exposure: No; Do You Dip or Chew Tobacco: No; Tobacco Cessation Education Requested by Patient: No Hx Alcohol Use: No Hx Substance Use: No Preferred Language: Albanian Communication Ability: Effective Visual Impairment: No Limitations Hearing Ability: Normal Credit Card Specialist Required: No Beliefs That Will Affect Care: None marital status: Single Current Living Situation: Family and Significant Other Current Living Situation Comment: 5 and 11 yr old boys current occupational status: employed Other Information That Helps Us Care for You: No Feels Safe at Home: Yes Safety Concerns: Feels Safe At This Time Allergies Allergies Allergy/AdvReac Type Severity Reaction Status Date / Time Iodinated Contrast Media Allergy Severe THROAT Verified 09/09/19 14:03 CLOSES Sulfa (Sulfonamide Allergy Intermediate RASH-HIVES Verified 09/09/19 14:03 Antibiotics) tramadol Allergy Intermediate RASH-HIVES Verified 09/09/19 14:03 metronidazole [From Flagyl] AdvReac Vomiting Verified 09/09/19 14:03 Home Meds Home Medications Medication Instructions Recorded Confirmed PNV cmb#95-ferrous fumarate-FA 1 tab PO QAM 03/29/19 09/09/19 [] cholecalciferol (vitamin D3) 50 mcg PO QAM 07/31/19 09/09/19 [Vitamin D3] Results & Data (ED) Vital Signs Vital Signs - 24 hr 09/09/19 13:42 09/09/19 14:21 09/09/19 14:24 Temperature 36.8 C Temperature Source Oral Pulse Rate 88 84 74 Pulse Rate from SpO2 Sensor 83 76 Respiratory Rate 16 15 17 Respiratory Effort / Characteristics Non-Labored Respiratory Depth Normal Respiratory Pattern Regular Blood Pressure 115/72 111/74 Blood Pressure Mean 86 85 Blood Pressure Position Sitting Pulse Oximetry 98 98 98 Oxygen Delivery Method Room Air Room Air Room Air Sepsis Recent Fever Within 48 Hours No Sepsis New/Unexplained Change in Mental Status N/A Sepsis Action Taken by Nursing No Action Required 09/09/19 14:30 09/09/19 15:00 09/09/19 15:30 Temperature Temperature Source Pulse Rate 77 69 83 Pulse Rate from SpO2 Sensor 78 69 79 Respiratory Rate 17 16 18 Respiratory Effort / Characteristics Respiratory Depth Respiratory Pattern Blood Pressure Blood Pressure Mean Blood Pressure Position Pulse Oximetry 98 98 98 Oxygen Delivery Method Room Air Room Air Room Air Sepsis Recent Fever Within 48 Hours Sepsis New/Unexplained Change in Mental Status Sepsis Action Taken by Nursing 09/09/19 16:00 09/09/19 16:52 Temperature Temperature Source Pulse Rate 74 67 Pulse Rate from SpO2 Sensor 75 66 Respiratory Rate 14 19 Respiratory Effort / Characteristics Respiratory Depth Respiratory Pattern Blood Pressure 117/83 Blood Pressure Mean 89 Blood Pressure Position Pulse Oximetry 100 99 Oxygen Delivery Method Room Air Room Air Sepsis Recent Fever Within 48 Hours Sepsis New/Unexplained Change in Mental Status Sepsis Action Taken by Nursing Laboratory Data Result diagrams: 09/09/19 14:05 09/09/19 14:05 Lab Results 09/09/19 09/09/19 09/09/19 Range/Units 14:05 14:05 14:05 WBC 5.48 (4.8-10.8) K/uL RBC 3.86 L (4.2-5.4) M/uL Hgb 12.4 (12.0-16.0) g/dL Hct 34.9 L (37-47) % MCV 90.4 (80-100) fL MCH 32.1 (25-34) pg MCHC 35.5 (32-36) g/dL RDW Std Deviation 40.9 (36.4-46.3) fL RDW Coeff of Wilfrido 12.4 (11.5-14.5) % Plt Count 188 (130-400) K/uL MPV 11.1 H (7.4-10.4) fL Immature Gran % (Auto) 0.4 % Neut % (Auto) 66.0 % Lymph % (Auto) 27.0 % Monroe % (Auto) 6.2 % Eos % (Auto) 0.2 % Baso % (Auto) 0.2 % Neut # (Auto) 3.62 (1.4-6.5) K/uL Lymph # (Auto) 1.48 (1.2-3.4) K/uL Monroe # (Auto) 0.34 (0.11-0.59) K/uL Eos # (Auto) 0.01 (0-0.5) K/uL Baso # (Auto) 0.01 (0-0.2) K/uL Immature Gran # (Auto) 0.02 (0.00-0.02) K/uL PT 10.1 (9.0-12.0) Seconds INR 1.0 (0.9-1.1) APTT 27.4 (21.0-31.0) Seconds PTT Ratio 1.0 Sodium 140 (136-145) mmol/L Potassium 3.7 (3.5-5.1) mmol/L Chloride 112 H (98-107) mmol/L Carbon Dioxide 20 L (21-32) mmol/L Anion Gap 8.0 (3-11) BUN 4 L (7-18) mg/dl Creatinine 0.74 (0.6-1.2) mg/dl Est Cr Clr Drug Dosing 125.6 ml/min Est GFR ( Amer) 126.0 Est GFR (Non-Af Amer) 108.7 BUN/Creatinine Ratio 5.2 L (10-20) Glucose 102 H (70-99) mg/dl Calcium 8.0 L (8.5-10.1) mg/dl Magnesium 1.8 (1.8-2.4) mg/dl Total Bilirubin 0.5 (0.2-1) mg/dl AST 9 L (15-37) U/L ALT 10 L (12-78) U/L Alkaline Phosphatase 210 H (45-117) U/L Troponin I < 0.015 (0-0.045) ng/ml Total Protein 5.8 L (6.4-8.2) gm/dl Albumin 2.3 L (3.4-5.0) gm/dl Globulin 3.5 (2.5-4.0) gm/dl Albumin/Globulin Ratio 0.7 L (0.9-2) Administered Medications Discontinued Medications Acetaminophen (Tylenol) 1,000 mg PO NOW STA Stop: 09/09/19 15:06 Last Admin: 09/09/19 15:10 Dose: 1,000 mg Documented by: [id number] Diphenhydramine HCl (Benadryl) 50 mg IV NOW STA Stop: 09/09/19 15:09 Last Admin: 09/09/19 17:05 Dose: 50 mg Documented by: [id number] Discharge Plan Visit Data *Final* Discharge Date/Time: 09/09/19 18:45 Chief Complaint: Neuro Symptoms/Deficit Stated Complaint: 36 WKS L&D SEND TO ER - RT SIDED FACE/ARM NUMB ED Provider: Drew Lora Discharge Problem: Slurred speech, Arm numbness, Patient Disposition: Admitted As Inpatient Discharge Instructions Interventions: ED Discharge Assessment Last Done: 09/09/19 18:45 Discharge Problem: Qualifiers: Weeks of gestation: 36 weeks Qualified Code(s): Z3A.36 - 36 weeks gestation of
[2019-09-09 14:17] LABS: Basophils # (auto) 0.01 K/uL (0-0.2); Basophils % (auto) 0.2 %; Eosinophils # (auto) 0.01 K/uL (0-0.5); Eosinophils % (auto) 0.2 %; Hematocrit (blood only) 34.9 % (37-47); Hemoglobin 12.4 g/dL (12.0-16.0); Immature Granulocytes # (auto) 0.02 K/uL (0.00-0.02); Immature Granulocytes % (auto) 0.4 %; Lymphocytes # (auto) 1.48 K/uL (1.2-3.4); Mean Corpuscular Hemoglobin 32.1 pg (25-34); Mean Corpuscular Hgb Conc 35.5 g/dL (32-36); Mean Corpuscular Volume 90.4 fL (80-100); Mean Platelet Volume 11.1 fL (7.4-10.4); Monocytes # (auto) 0.34 K/uL (0.11-0.59); Monocytes % (auto) 6.2 %; Neutrophils # (auto) 3.62 K/uL (1.4-6.5); Platelet Count 188 K/uL (130-400); RDW Coefficient of Variation 12.4 % (11.5-14.5); RDW Standard Deviation 40.9 fL (36.4-46.3); Red Blood Count 3.86 M/uL (4.2-5.4); White Blood Count 5.48 K/uL (4.8-10.8)
[2019-09-09 14:35] LABS: Partial Thromboplastin Time 27.4 Seconds (21.0-31.0); Prothrombin Time 10.1 Seconds (9.0-12.0)
[2019-09-09 14:49] LABS: Albumin Level 2.3 gm/dl (3.4-5.0); BUN Creatinine Ratio 5.2 (10-20); Blood Urea Nitrogen 4 mg/dl (7-18); Carbon Dioxide 20 mmol/L (21-32); Chloride 112 mmol/L (98-107); Creatinine Clr Calc Pharmacy 125.6 ml/min; Est GFR (Non-African American) 108.7; Glucose 102 mg/dl (70-99); Magnesium 1.8 mg/dl (1.8-2.4); Potassium 3.7 mmol/L (3.5-5.1); Sodium 140 mmol/L (136-145)
[2019-09-09 14:55] LABS: Alanine Aminotransferase 10 U/L (12-78); Albumin Globulin Ratio 0.7 (0.9-2); Alkaline Phosphatase 210 U/L (45-117); Aspartate Aminotransferase 9 U/L (15-37); Bilirubin,Total 0.5 mg/dl (0.2-1); Globulin 3.5 gm/dl (2.5-4.0); Total Protein 5.8 gm/dl (6.4-8.2); Troponin I < 0.015 ng/ml (0-0.045)
[2019-09-09] MEDS ORDERED: ACETAMINOPHEN 500 MG TAB PO STA (15:05)
[2019-09-09] MEDS ORDERED: DiphenhydrAMINE HCL 50 MG/ML VIAL IV STA (15:08)
--- NOTE | 2019-09-09 16:05 | Electrocardiogram Report ---
Test Reason : Blood Pressure : / mmHG Vent. Rate : 074 BPM Atrial Rate : 074 BPM P-R Int : 134 ms QRS Dur : 086 ms QT Int : 364 ms P-R-T Axes : 049 070 054 degrees QTc Int : 404 ms Normal sinus rhythm with sinus arrhythmia Normal ECG When compared with ECG of 03-JAN-2019 23:18, Sinus rhythm has replaced Ectopic atrial rhythm Confirmed by Blair Cho ([id number]) on 09/09/2019 4:04:36 PM Referred By: Damien Corley Confirmed By:Blair Cho
[2019-09-09] MEDS ORDERED: ONDANSETRON INJ 2 MG/ML 2 ML VIAL IV PRN (16:55)
[2019-09-09] MEDS ORDERED: ONDANSETRON 4 MG OD TAB PO PRN (16:55)
[2019-09-09] MEDS ORDERED: ACETAMINOPHEN 325 MG TAB PO PRN (16:55)
--- NOTE | 2019-09-09 17:46 | Magnetic Resonance Report ---
MR venography head wo con CLINICAL HISTORY: slurred speech right arm and face numb COMPARISON STUDY: Head CT May 15, 2008. TECHNIQUE: Utilizing a 1.5 Rabia magnet and [id number]-is-[id number] technique, unenhanced MRA of the head was obtained. FINDINGS: Please note that the MRI of the brain will be reported separately. The superior sagittal si nus is patent. The straight sinus is patent. The bilateral transverse and sigmoid sinuses are patent. The proximal bilateral internal jugular veins are patent. No dural sinus thrombosis identified on th is examination. IMPRESSION: No dural sinus thrombosis identified. ACT 112: Negative or not required by law. Electronically signed by: Jose Bess M.D. 09/09/2019 5:44 PM
--- NOTE | 2019-09-09 17:48 | History and Physical Report ---
DATE OF ADMISSION: 09/09/2019 CHIEF COMPLAINT: Intrauterine , 36 weeks gestation, loss of vision right side, numbness in right arm and hand and numbness in the right side of her face. HISTORY OF PRESENT ILLNESS: The patient is a 29-year-old 3, para 2. She has a history of frequent kidney infections. SHE IS ALLERGIC TO SULFA AND CT DYE. Her present is uneventful except she has difficulty emptying her right kidney. Her due date for the is 10/04/2019, it was confirmed by early ultrasound. She did have one cath urine culture during her course. It was negative. Her obstetrical history is as follows; in 2008 she was hospitalized during this several times. Went into premature labor at 25 weeks, was placed at bed rest and eventually she went to 39 weeks and delivered a 7-pound 13 ounce male, spontaneous vaginal delivery, 14-hour labor, pushed about 6 times. A second is 2015 male, delivered at 38-39 weeks, 9 pounds 13 ounces, spontaneous vaginal delivery, went into premature labor at 31 weeks gestation. She had about a 7-hour labor, pushed for approximately 6 times. She recently stated at about 12:30 on the day of admission, she began to have a sudden onset of decreased vision in her right eye, also numbness in her right arm and hand, numbness in the right side of her face. She does not have a history of migraine headaches and these symptoms did not go away. She was instructed to come to the Emergency Room for evaluation. PAST MEDICAL HISTORY: She has 2 children in good health. ALLERGIES: SHE IS ALLERGIC TO SULFA AND CT DYE. PAST SURGICAL HISTORY: She had her gallbladder removed in 2010, in 2012 she had an appendectomy and as a child she had a tonsillectomy and adenoidectomy. MEDICAL HISTORY: No history of rheumatic fever, heart disease, heart murmur, diabetes, tuberculosis. SOCIAL HISTORY: No smoking, no alcohol intake. 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 FAMILY HISTORY: Mom is 54, heavy smoker, COPD, has a Factor V and has a diagnosis of fibromyalgia. Father 55, heavy smoker, had several heart attacks. He also has high blood pressure. Siblings, she has 1 sister age 32 in good health. REVIEW OF SYSTEMS: HEAD: No symptoms of frequent or severe headaches. EYES: No symptoms of blurred vision, double vision. EARS: No symptoms of frequent ear infection. PHYSICAL EXAMINATION: GENERAL: Well-developed, well-nourished 29-year-old white female, alert, oriented x3 and cooperative. Facial features shows some grimacing on the right side. HEART: Had regular rhythm. S1, S2 are normal. LUNGS: Clear to auscultation and percussion. HEART: Had a regular rhythm. ABDOMEN: Consistent with a 30-week fetus. No CVA tenderness, no abdominal tenderness. PELVIC: Recent pelvic exam in the office reveals cervix to be closed. MUSCULOSKELETAL: Revealed no calf tenderness. IMPRESSIONS OF THIS CASE: Status post tonsillectomy and adenoidectomy, status post cholecystectomy, status post appendectomy, intrauterine , 36 weeks gestation and rule out a neurological episodes.
--- NOTE | 2019-09-09 18:12 | Magnetic Resonance Report ---
MRI OF THE BRAIN WITHOUT CONTRAST CLINICAL HISTORY: Right arm and facial numbness. COMPARISON STUDY: Head CT May 07, 2008. TECHNIQUE: Utilizing a 1.5 Rabia magnet and dedicated coil, multiplanar, multiecho imaging of the bra in was performed without IV contrast. FINDINGS: This exam is mildly compromised by artifact. There are no foci of restricted diffusion to s uggest acute infarct. No acute intracranial hemorrhage, midline shift or mass effect is present. The ventricular system is normal. Basilar cisterns are patent. There are no extra-axial collections. No i ntracranial masses are identified on this unenhanced exam. Flow-voids for the major intracranial vess els are present. No parenchymal signal abnormality is identified. Calvarial signal is normal. Orbits and sinuses are unremarkable. There is no mastoid fluid. IMPRESSION: Unremarkable unenhanced MRI of the brain. ACT 112: Negative or not required by law. Electronically signed by: Jose Bess M.D. 09/09/2019 6:11 PM
[2019-09-09] MEDS ORDERED: OXYCODONE/ACETAMINOPHEN 5mg/325mg TAB PO PRN (20:12)
[2019-09-09] MEDS: OXYCODONE/ACETAMINOPHEN 5mg/325mg TAB PO PRN (20:25)
[2019-09-10] MEDS: OXYCODONE/ACETAMINOPHEN 5mg/325mg TAB PO PRN ×2 (01:39→08:33)
--- NOTE | 2019-09-10 10:21 | Obstetrical Progress Note ---
Date of Service September 10, 2019 Assessment & Plan Admission and Anticipated Discharge Date Admission Date: September 09, 2019 Physical Exam Physical Exam: headache has decreased in severity no calf tenderness ambulating well symptoms have resolved palpation of abdomen vertex presentation Results & Data ([facility]) Vital Signs (Past 12 Hours) Vital Signs Temp Pulse Resp BP Pulse Ox 09/10/19 04:00 36.7 C 70 16 104/64 98 09/09/19 23:45 37.1 C 69 18 107/69 100
--- NOTE | 2019-09-10 10:44 | Discharge Summary (DS) ---
The patient is followed in our office for care and delivery. Her care so far has been fairly uneventful. She had a cath urine culture that was negative and she did have a persistent breech presentation. During her , she has had several episodes of migraine headache syndrome with neurological symptoms. The third time she had it, they were quite severe. She had numbness in her right hand, arm and hand, some slurred speech and some visual disturbances. Symptoms were fairly upsetting to the patient, went to the Emergency Room and there they ordered an MRI of the brain which was normal and a consult with Neurology stated that she should be kept overnight for observation. I went down, did her H and P, admitted her. During the night, she received about 2 doses of Percocet. Her symptoms resolved. Her numbness resolved to a great extent and she was given prescriptions for Tylenol No. 3 with codeine to take too and drink with caffeine. If she had another migraine coming on then to return to the office for continued care and delivery. We ordered an ultrasound to confirm a fetus presentation.
--- NOTE | 2019-09-10 12:54 | Ultrasound Report ---
US OB limited CLINICAL HISTORY: position size fluid estimated weight COMPARISON STUDY: OB ultrasound June 01, 2019. TECHNIQUE: Transabdominal sonography of the pelvis was performed. FINDINGS: Single viable intrauterine gestation is noted. Presentation is breech. Placenta is located anteriorly. There is no placental abnormality. heart rate is normal 134 bpm. Amniotic fluid ind ex measures 12 cm. Please note that a dedicated anatomical survey was not performed. Biparietal diameter measured 9.55 cm which corresponds to an estimated gestational age of 39 weeks. The head ci rcumference measured 33.77 cm which corresponds to gestational age of 38 weeks and 5 days. Abdominal circumference measures 30.86 cm which corresponds to an estimated gestational age of 34 weeks and 6 d ays. Femur length measures 7.2 cm which corresponds to an estimated gestational age of 36 weeks and 6 days.. Age by ultrasound is 37 weeks and 0 days. Estimated weight is 6 pounds and 5 ounces. Ce rvix was not fully assessed on this exam. IMPRESSION: 1. Single viable intrauterine gestation. Normal heart rate. 2. Breech presentation. 3. Amniotic fluid index of 12 cm. 4. Estimated weight of 6 pounds and 5 ounces. ACT 112: Negative or not required by law. Electronically signed by: Jose Bess M.D. 09/10/2019 12:53 PM
== END 2019-09-10 14:04 | disposition home or self-care (01) ==
LOC: 4S2 13:39 → ED 13:39 → 4S2 18:45

== ENCOUNTER 2019-09-21 11:14 | Inpatient (IN) ==
--- NOTE | 2019-09-21 11:21 | Anesthesiology Consultation ---
Date of Service September 21, 2019 Assessment & Plan (1) Encounter for pre-operative examination: Chart Review Chart Review: Acceptable Risk for Surgery Consults Requested none ASA ASA2 Proposed Anesthesia Anesthesia Type: Spinal Risk / Benefits Reviewed With: PT / POA / Parent / Guardian, Accepts Plan and Informed Consent Obtained History Allergies Allergy/AdvReac Type Severity Reaction Status Date / Time Iodinated Contrast Media Allergy Severe THROAT Verified 09/18/19 11:22 CLOSES Sulfa (Sulfonamide Allergy Intermediate RASH-HIVES Verified 09/18/19 11:22 Antibiotics) tramadol Allergy Intermediate RASH-HIVES Verified 09/18/19 11:22 metronidazole [From Flagyl] AdvReac Vomiting Verified 09/18/19 11:22 Medications Home Medications Medication Instructions Recorded Confirmed Last Taken PNV cmb#95-ferrous fumarate-FA 1 tab PO QAM 03/29/19 09/18/19 08/28/19 [] cholecalciferol (vitamin D3) 50 mcg PO QAM 07/31/19 09/18/19 08/28/19 [Vitamin D3] albuterol sulfate 1 puff INHALATION QID PRN 09/18/19 09/18/19 Unknown NPO Date Last Intake of Fluids: 09/20/19 Time Last Intake of Fluids: 22:00 Date Last Intake of Solids: 09/20/19 Time Last Intake of Solids: 22:00 Past Medical History Medical History ADHD no meds Anxiety Asthma rarely uses PRN inh Depression Enlarged kidney Rt Frequent UTI Kidney stone Migraine Osteoarthritis PTSD (post-traumatic stress disorder) Exercise / Class Metabolic Activity II 4-5 Yardwork/Stairs/Walk up hill Past Family History Family History Mother Factor V Leiden Grandfather (Paternal) Diabetes Grandmother (Paternal) Diabetes Past Surgical History Surgical History History of appendectomy History of esophagogastroduodenoscopy (EGD) History of tonsillectomy and adenoidectomy History of wisdom tooth extraction Hx of cholecystectomy Past Anesthesia History No Hx of Anesthesia Complications and No Family Hx of Anesthesia Complications History of PONV No Hx of PONV and No Hx of Motion Sickness Social History Smoking Status: Former smoker Hx Alcohol Use: No Hx Substance Use: No substance use type: does not use Physical Exam ENMT Mouth: no dentition abnormality Thyromental Distance: > or= 3.5 Finger Breadths Mallampati Class: II Neck normal visual inspection Respiratory normal respiratory effort Auscultation: lungs clear to auscultation bilaterally Cardiovascular Rate/Rhythm: regular rate and regular rhythm
[2019-09-21] MEDS ORDERED: fentaNYL citrate 100 MCG/2 ML VIAL ONE (11:26)
[2019-09-21] MEDS ORDERED: MoRPHine SULFATE PF 1 MG/ML 10 ML AMP/VIAL ONE (11:26)
[2019-09-21] MEDS ORDERED: OXYTOCIN 10 UNITS/ML VIAL ONE ×3 (11:26→11:27)
[2019-09-21] MEDS ORDERED: LACTATED RINGER'S 1,000 ML IV SCH ×3 (11:30→14:00)
[2019-09-21] MEDS ORDERED: cefOXitin 2,000 MG in DEXTROSE 5% 50 ML IV STA (11:38)
[2019-09-21 11:45] LABS: Basophils # (auto) 0.02 K/uL (0-0.2); Basophils % (auto) 0.2 %; Eosinophils # (auto) 0.02 K/uL (0-0.5); Eosinophils % (auto) 0.2 %; Hematocrit (blood only) 37.7 % (37-47); Hemoglobin 13.1 g/dL (12.0-16.0); Immature Granulocytes # (auto) 0.03 K/uL (0.00-0.02); Immature Granulocytes % (auto) 0.4 %; Lymphocytes # (auto) 1.59 K/uL (1.2-3.4); Lymphocytes % (auto) 18.9 %; Mean Corpuscular Hemoglobin 31.6 pg (25-34); Mean Corpuscular Volume 91.1 fL (80-100); Mean Platelet Volume 11.6 fL (7.4-10.4); Monocytes # (auto) 0.39 K/uL (0.11-0.59); Monocytes % (auto) 4.6 %; Neutrophils # (auto) 6.35 K/uL (1.4-6.5); Neutrophils % (auto) 75.7 %; Platelet Count 192 K/uL (130-400); RDW Coefficient of Variation 12.7 % (11.5-14.5); Red Blood Count 4.14 M/uL (4.2-5.4)
[2019-09-21 11:46] LABS: Mean Corpuscular Hgb Conc 34.7 g/dL (32-36)
[2019-09-21 11:54] LABS: Partial Thromboplastin Time 27.3 Seconds (21.0-31.0)
[2019-09-21 12:04] LABS: BUN Creatinine Ratio 5.4 (10-20); Calcium 8.1 mg/dl (8.5-10.1); Creatinine Clr Calc Pharmacy 109.6 ml/min; Est GFR (African American) 108.1; Est GFR (Non-African American) 93.3; Potassium 3.4 mmol/L (3.5-5.1)
[2019-09-21] MEDS ORDERED: DiphenhydrAMINE HCL 50 MG/ML VIAL IV PRN (13:01)
[2019-09-21] MEDS ORDERED: NALOXONE HCL 0.4 MG/1 ML VIAL/CARP IV PRN (13:01)
[2019-09-21] MEDS ORDERED: NALOXONE HCL 0.08 MG in SYRINGE 1.8 ML IV PRN (13:01)
[2019-09-21] MEDS ORDERED: MoRPHine SULFATE PF 1 MG/ML 10 ML AMP/VIAL INT SPINAL ONE (13:01)
[2019-09-21] MEDS ORDERED: NALOXONE HCL 1 MG in SODIUM CHLORIDE 0.9% 1000ML 1,000 ML IV PRN (13:01)
[2019-09-21] MEDS ORDERED: ePHEDrine sulfate 50 MG/ML AMP IV PRN (13:01)
[2019-09-21] MEDS ORDERED: LACTATED RINGER'S 500 ML IV PRN (13:01)
[2019-09-21] MEDS ORDERED: ONDANSETRON INJ 2 MG/ML 2 ML VIAL IV PRN (13:01)
[2019-09-21] MEDS ORDERED: OXYTOCIN 10 UNITS/ML VIAL IM ONE (13:14)
[2019-09-21] MEDS ORDERED: NO NARCOTICS OR SEDATIVES SCH (13:15)
[2019-09-21] MEDS ORDERED: DC INTRASPINAL MORPHINE SCH (13:15)
[2019-09-21] MEDS ORDERED: SODIUM CHLORIDE 0.9% 1000ML 1,000 ML IV SCH (13:15)
[2019-09-21] MEDS ORDERED: HYDROCORTISONE ACETATE 25 MG SUPP PR PRN (13:48)
[2019-09-21] MEDS ORDERED: BENZOCAINE 20% AER SPR 82.5 GM CAN EXT PRN (13:48)
[2019-09-21] MEDS ORDERED: SUPERCREAM 0.870% 15 GM JAR EXT PRN (13:48)
[2019-09-21] MEDS ORDERED: DIPHTHERIA/TETANUS/PERTUSSIS 0.5 ML SYR/VIAL IM ONE (13:48)
[2019-09-21] MEDS ORDERED: MAGNESIUM HYDROXIDE SUSP 30 ML UDC PO PRN (13:48)
[2019-09-21] MEDS ORDERED: SENNA 8.6 MG TAB PO PRN (13:48)
--- NOTE | 2019-09-21 13:51 | Post Operative Brief Note ---
Immediate Post Op Note v1 Date of Surgery September 21, 2019 Pre & Post Diagnosis Operation Date: 09/21/19 11:15 Pre-Op Diagnosis: Labor;Breech;38 weeks Post-Op Diagnosis: Same;Delivery of a live male child at 1311 I identified the patient and participated in the time-out.: Yes Procedure Operation Date: 09/21/19 11:15 Actual Procedures p Section in LD - Damien Corley MD Surgeon Damien Corley MD Identifier Horse Dr Toscano Estimated Blood Loss 500 Findings Consistent with Post-Op Diagnosis Specimens placenta Drains Carvalho Catheter Anesthesia Type MAC Spinal Regional Complications none Disposition Accompanied Patient To Recovery: No Disposition: Recovery Room
[2019-09-21] MEDS ORDERED: OXYTOCIN 20 UNITS in LACTATED RINGER'S 1,000 ML IV SCH (14:00)
[2019-09-21] MEDS: KETOROLAC 30 MG/ML VIAL IV PRN ×2 (14:19→23:28)
--- NOTE | 2019-09-21 14:32 | Operative Report (OR) ---
DATE OF OPERATION: 09/21/2019 PROCEDURE: Primary low segment section. INDICATIONS FOR SURGERY: Active labor, breech presentation. PREOPERATIVE DIAGNOSES: Active labor, confirmed breech presentation. POSTOPERATIVE DIAGNOSES: Active labor, confirmed breech presentation, delivered live male . SURGEON: Kenroy Corley MD. PROP SETTER: Dr. Toscano. ESTIMATED BLOOD LOSS: 500 mL. ANESTHESIA: Spinal. OPERATIVE FINDINGS AND PROCEDURE: The patient was brought to the OR table, correctly identified by armband and conversation. Spinal anesthesia was administered. She was then placed flat on the table. Compression stockings were applied and a Carvalho catheter was inserted aseptically into the bladder and connected to gravity drainage. Lower abdomen was painted with an alcohol based sterilizing solution, waited 3 minutes for it to dry, and then draped in usual sterile fashion. The adequacy of the anesthesia was checked and found to be good. A Pfannenstiel incision was made and carried down to the anterior fascia by sharp dissection. Hemostasis was secured by electrocauterization. Fascia was incised transversely, from the underlying muscle by blunt and sharp dissection. Recti muscles were in midline exposing the peritoneum, which was carefully raised and entered. A bladder blade was used to expose the lower uterine segment. An incision was made above the vesicouterine fold. Bladder was undermined bluntly and pushed out of the operative field. Lower uterine segment was scored with a knife and then entered with the scissors. Clear amniotic fluid was seen at this time. A breech extraction was performed. Then, after the body was delivered, each arm was reduced and then the head was delivered without difficulty. The was attended to by the door manager who was scrubbed and present at the time of delivery. Cord was clamped and cut. Cord blood was taken. Placenta was removed manually. Uterus, tubes, and ovaries were brought out through the incision. They were inspected and found to be normal. A careful approximation of the myometrium was approximated with continuous interlocking suture of chromic catgut. Then a separate layer was approximated over this to approximate the fascial layer. This was done with a heavy duty Vicryl. Following this, the suture line was hemostatic. We then restored the bladder flap with a 3-0 chromic, cleansed the pelvis of all blood clots and debris. Reinserted uterus, tubes, and ovaries into the abdomen, checked the incisional line, was good. We then did a careful anatomical approximation of the anterior abdominal wall. Peritoneum was closed with a mattress suture of chromic catgut. Recti muscles were approximated with interrupted [id number] suture of chromic catgut. The fascia was closed with continuous interlocking suture of Vicryl on each side, tied in the midline. SubQ was approximated with a running plain and the skin edges were approximated with staple clips. I attest to the content of the Intraoperative Record and any orders documented therein. Any exception s are noted below.
--- NOTE | 2019-09-21 15:42 | Anesthesiology Progress Note ---
Date of Service September 21, 2019 Anesthesia Post Procedure Vital Signs Vital Signs: Temp Pulse Resp BP Pulse Ox 09/21/19 15:40 69 99 09/21/19 15:35 67 99 09/21/19 15:30 68 99 09/21/19 15:28 66 138/83 09/21/19 15:26 71 18 100 09/21/19 15:25 78 99 09/21/19 15:20 71 100 09/21/19 15:17 64 125/86 09/21/19 15:15 71 100 09/21/19 15:10 70 100 09/21/19 15:07 69 126/85 09/21/19 15:05 70 100 09/21/19 15:00 63 100 09/21/19 14:57 71 128/86 09/21/19 14:56 98.4 F 70 18 100 09/21/19 14:55 66 100 09/21/19 14:50 66 100 09/21/19 14:47 60 125/82 09/21/19 14:46 60 20 125/82 09/21/19 14:45 75 100 09/21/19 14:40 65 100 09/21/19 14:37 63 133/79 09/21/19 14:36 70 100 09/21/19 14:35 70 100 09/21/19 14:30 74 100 09/21/19 14:27 60 135/83 09/21/19 14:26 66 20 100 09/21/19 14:25 66 100 09/21/19 14:20 70 100 09/21/19 14:17 60 131/83 09/21/19 14:16 22 09/21/19 14:15 71 100 09/21/19 14:10 66 100 09/21/19 14:07 61 132/87 09/21/19 14:06 66 22 100 09/21/19 14:05 82 100 09/21/19 14:00 70 100 09/21/19 13:56 98.1 F 64 22 134/80 100 09/21/19 13:55 73 100 09/21/19 11:52 98.1 F 16 09/21/19 11:43 73 134/85 Pain Intensity Bilateral Anterior Abdomen: Pain Intensity: 1 Transfer of Care Handoff Completed per policy Notes Mental Status: alert / awake / arousable and participated in evaluation Nausea / Vomiting: adequately controlled Pain: adequately controlled Airway Patency, RR, SpO2: stable & adequate BP & HR: stable & adequate Hydration State: stable & adequate Neuraxial Anesthesia: was administered and sensory block is resolving Anesthetic Complications: no major complications apparent and Pt Satisfied with anesthetic care
[2019-09-21] MEDS: MEPERIDINE HCL 25 MG/ML CARP/VIAL IV PRN (17:17)
[2019-09-21] MEDS: SIMETHICONE 80 MG CHEW PO SCH ×2 (17:18→20:31)
[2019-09-21] MEDS: DOCUSATE SODIUM 100 MG CAP PO SCH (20:31)
[2019-09-22] MEDS: MEPERIDINE HCL 25 MG/ML CARP/VIAL IV PRN (04:37)
[2019-09-22] MEDS ORDERED: DiphenhydrAMINE HCL 50 MG/ML VIAL IV PRN (07:01)
[2019-09-22] MEDS ORDERED: ONDANSETRON INJ 2 MG/ML 2 ML VIAL IV PRN (07:01)
[2019-09-22] MEDS ORDERED: PROMETHAZINE HCL 25 MG in SODIUM CHLORIDE 0.9% 50 ML IV PRN (07:01)
[2019-09-22] MEDS ORDERED: ZOLPIDEM TARTRATE 5 MG TAB PO PRN (07:01)
[2019-09-22] MEDS ORDERED: KETOROLAC 30 MG/ML VIAL IV PRN (07:01)
[2019-09-22] MEDS ORDERED: MEPERIDINE HCL 50 MG/ML CARP IV PRN (07:01)
[2019-09-22 07:38] LABS: Basophils # (auto) 0.01 K/uL (0-0.2); Basophils % (auto) 0.1 %; Eosinophils # (auto) 0.01 K/uL (0-0.5); Eosinophils % (auto) 0.1 %; Hematocrit (blood only) 32.3 % (37-47); Hemoglobin 11.1 g/dL (12.0-16.0); Immature Granulocytes # (auto) 0.01 K/uL (0.00-0.02); Immature Granulocytes % (auto) 0.1 %; Lymphocytes # (auto) 1.06 K/uL (1.2-3.4); Lymphocytes % (auto) 15.4 %; Mean Corpuscular Hemoglobin 31.8 pg (25-34); Mean Corpuscular Hgb Conc 34.4 g/dL (32-36); Mean Corpuscular Volume 92.6 fL (80-100); Mean Platelet Volume 10.9 fL (7.4-10.4); Monocytes # (auto) 0.38 K/uL (0.11-0.59); Monocytes % (auto) 5.5 %; Neutrophils # (auto) 5.43 K/uL (1.4-6.5); Neutrophils % (auto) 78.8 %; Platelet Count 140 K/uL (130-400); RDW Coefficient of Variation 12.9 % (11.5-14.5); RDW Standard Deviation 43.1 fL (36.4-46.3); Red Blood Count 3.49 M/uL (4.2-5.4)
[2019-09-22] MEDS: FERROUS SULFATE 325 MG TAB PO SCH (09:16)
[2019-09-22] MEDS: DOCUSATE SODIUM 100 MG CAP PO SCH ×2 (09:16→20:43)
[2019-09-22] MEDS: SIMETHICONE 80 MG CHEW PO SCH ×4 (09:16→20:43)
[2019-09-22] MEDS: PRENATAL VITAMIN 1 TAB PO SCH (09:17)
[2019-09-22] MEDS: OXYCODONE/ACETAMINOPHEN 5mg/325mg TAB PO PRN ×4 (09:17→21:48)
[2019-09-22] MEDS: IBUPROFEN 600 MG TAB PO PRN ×4 (09:17→21:48)
--- NOTE | 2019-09-22 11:36 | Obstetrical Progress Note ---
Date of Service September 22, 2019 Assessment & Plan Admission and Anticipated Discharge Date Admission Date: September 21, 2019 Physical Exam Physical Exam: abdomen soft and non tender bandage removed incision is clean and dry no calf tenderness vaginal bleeding scant hgb 11.1 Results & Data ([facility]) Vital Signs (Past 12 Hours) Vital Signs Temp Pulse Resp BP Pulse Ox 09/22/19 07:49 36.7 C 77 19 115/76 100 09/22/19 06:00 16 99 09/22/19 05:23 14 98 09/22/19 04:41 16 99 09/22/19 04:30 36.8 C 76 14 108/69 98 09/22/19 02:46 16 99 09/22/19 00:02 16 99
[2019-09-22] MEDS ORDERED: bisacodyL 5 MG TABEC PO SCH (20:00)
[2019-09-23] MEDS: IBUPROFEN 600 MG TAB PO PRN ×6 (01:51→23:32)
[2019-09-23] MEDS: OXYCODONE/ACETAMINOPHEN 5mg/325mg TAB PO PRN ×6 (01:52→23:32)
[2019-09-23 06:51] LABS: Hemoglobin 10.2 g/dL (12.0-16.0)
--- NOTE | 2019-09-23 08:39 | Obstetrical Progress Note ---
Date of Service September 23, 2019 Assessment & Plan Admission and Anticipated Discharge Date Admission Date: September 21, 2019 Physical Exam Physical Exam: abdomen soft and non tender incision is clean and dry no calf tenderness ambulating well vaginal bleeding scant hgb 10.2 Results & Data ([facility]) Vital Signs (Past 12 Hours) Vital Signs Temp Pulse Resp BP Pulse Ox 09/23/19 00:35 36.9 C 78 17 130/72 99
[2019-09-23] MEDS: SIMETHICONE 80 MG CHEW PO SCH ×4 (08:53→20:16)
[2019-09-23] MEDS: PRENATAL VITAMIN 1 TAB PO SCH (08:53)
[2019-09-23] MEDS: FERROUS SULFATE 325 MG TAB PO SCH (08:53)
[2019-09-23] MEDS: DOCUSATE SODIUM 100 MG CAP PO SCH ×2 (08:53→20:16)
[2019-09-23] MEDS ORDERED: bisacodyL 10 MG SUPP PR PRN (13:48)
[2019-09-24] MEDS: OXYCODONE/ACETAMINOPHEN 5mg/325mg TAB PO PRN ×3 (04:21→13:01)
[2019-09-24] MEDS: IBUPROFEN 600 MG TAB PO PRN ×3 (04:21→13:02)
--- NOTE | 2019-09-24 07:22 | Obstetrical Progress Note ---
Date of Service September 24, 2019 Assessment & Plan Admission and Anticipated Discharge Date Admission Date: September 21, 2019 Physical Exam Physical Exam: abdomen soft and non tender incision is clean and dry no calf tenderness ambulating well vaginal bleeding scant hgb 10.2 Results & Data ([facility]) Vital Signs (Past 12 Hours) Vital Signs Temp Pulse Resp BP 09/23/19 23:34 36.7 C 87 20 118/79
[2019-09-24] MEDS: SIMETHICONE 80 MG CHEW PO SCH (08:57)
[2019-09-24] MEDS: FERROUS SULFATE 325 MG TAB PO SCH (08:57)
[2019-09-24] MEDS: DOCUSATE SODIUM 100 MG CAP PO SCH (08:57)
[2019-09-24] MEDS: PRENATAL VITAMIN 1 TAB PO SCH (08:57)
--- NOTE | 2019-09-24 09:16 | Discharge Summary (DS) ---
The patient was followed in our office for care and delivery. She had a breech presentation, which was diagnosed fairly early in her . It was confirmed several times by ultrasound. She was offered attempt at version, but she elected to have a primary section. She was scheduled at 39 weeks for elective , but went into labor at 38 weeks, came in with contractions and cervix about 4 cm dilated. She received a bedside ultrasound and confirmed breech presentation and then was given prophylactic antibiotics and taken to the OR where she underwent primary low segment section. She did well postoperatively. Her bowel sounds returned within 24 hours. Estimated blood loss at the time of surgery was 600 mL, preoperative hemoglobin was 13.1 and it eventually fell to 10.2. At the time of discharge, she was ambulating well, eating well, taking a regular diet, passing gas and pain was well controlled with a combination of Percocet and Motrin. She was given prescriptions for Percocet and Motrin, told to call the office if she had a temperature over 100 or any heavy bleeding, return to the office in a week for removal of geovani.
== END 2019-09-24 13:15 | disposition home or self-care (01) | DRG 788 ==
LOC: 4S1 11:14 → OPB 11:14 → 4S1 11:21 → 4S2 16:28